=== PATIENT | female | born 1935 | race Caucasian/White ===

== ENCOUNTER 2020-06-30 12:45 | Inpatient (IN) | payer MEDICARE, MEDICAID ==
--- NOTE | 2020-06-30 13:07 | EDM.PDOC ---
ED HPI GENERAL MEDICAL PROBLEM - General Stated Complaint: TACHYCARDIA;A FIB Time Seen by Provider: 06/30/20 12:54 Source of Information: Reports: Patient, EMS, Provider (Cindy Doherty called me) History Limitations: Reports: No Limitations - History of Present Illness INITIAL COMMENTS - FREE TEXT/NARRATIVE: Patient presents with racing heart, dyspnea, weakness and fatigue. She went in to the [facility] and saw Cindy Doherty. EKG and CXR were done showing A Fib with RVR. CXR showing small bilat pleural effusions. Cindy sent her here for further treatment and likely admission. A week ago patient saw Frederick Duggan with heart rate in mid 90's and was started on metoprolol. - Related Data Allergies Allergy/AdvReac Type Severity Reaction Status Date / Time No Known Drug Allergies Allergy Cannot Verified 06/30/20 13:09 Remember Home Meds: Home Meds Acetaminophen [Pain Relief] 650 mg PO Q4H PRN 06/30/20 [History] Apixaban [Eliquis] 2.5 mg PO BID 06/30/20 [History] Aspirin [Aspirin EC] 325 mg PO DAILY 06/30/20 [History] Cinacalcet [Sensipar] 60 mg PO BID 06/30/20 [History] Levothyroxine 75 mcg PO ACBREAKFAST 06/30/20 [History] Magnesium Oxide 500 mg PO DAILY 06/30/20 [History] Metoprolol Succinate [Toprol XL 50mg] 50 mg PO DAILY 06/30/20 [History] Phosphorus #1 [Phospha 250 Neutral Tablet] 250 mg PO DAILY 06/30/20 [History] atorvaSTATin [Lipitor] 80 mg PO BEDTIME 06/30/20 [History] ED ROS GENERAL - Review of Systems Review Of Systems: See Below Constitutional: Reports: Weakness, Fatigue. Denies: Fever, Chills HEENT: Denies: Ear Pain, Throat Pain, Vision Change Respiratory: Reports: Shortness of Breath. Denies: Cough Cardiovascular: Denies: Chest Pain, Lightheadedness, Syncope Endocrine: Reports: Fatigue GI/Abdominal: Denies: Abdominal Pain, Constipation, Diarrhea, Decreased Appetite, Nausea, Vomiting : Denies: Dysuria Musculoskeletal: Denies: Neck Pain, Shoulder Pain, Arm Pain, Back Pain Skin: Denies: Cyanosis, Jaundice, Mottled, Pallor, Diaphoresis Neurological: Denies: Confusion, Dizziness, Headache, Seizure, Syncope, Trouble Speaking, Difficulty Walking Psychiatric: Denies: Agitation ED EXAM, GENERAL - Physical Exam Exam: See Below Exam Limited By: No Limitations General Appearance: Alert, WD/WN, No Apparent Distress Ears: Normal External Exam, Hearing Grossly Normal Nose: Normal Inspection, No Blood Throat/Mouth: Normal Inspection, Normal Lips, Normal Voice, No Airway Compromise Head: Atraumatic, Normocephalic Neck: Normal Inspection, Supple, Non-Tender, Full Range of Motion Respiratory/Chest: No Respiratory Distress, Lungs Clear, Normal Breath Sounds, No Accessory Muscle Use Cardiovascular: Normal Peripheral Pulses, No Edema, No Gallop, Tachycardia, Irregularly Irregular GI/Abdominal: Normal Bowel Sounds, Soft, Non-Tender, No Organomegaly, No Distention Back Exam: Normal Inspection Extremities: Normal Inspection, Normal Range of Motion, Non-Tender, No Pedal Edema Neurological: Alert, Oriented, Normal Cognition, No Motor/Sensory Deficits Psychiatric: Normal Affect, Normal Mood Skin Exam: Warm, Dry, Intact, Normal Color, No Rash #1 Interpretation EKG Date: 06/30/20 Rhythm: A-Fib Rate (Beats/Min): 126 ST-T: Normal Course - Vital Signs Last Recorded V/S: Last Vital Signs Temp 97.9 F 06/30/20 12:54 Pulse 96 06/30/20 14:21 Resp 18 06/30/20 14:21 BP 146/92 H 06/30/20 14:21 Pulse Ox 94 L 06/30/20 14:21 - Orders/Labs/Meds Orders: Active Orders 24 hr Category Date Time Status Patient Status [ADT] Routine ADT 06/30/20 14:40 Ordered EKG Documentation Completion [RC] ASDIRECTED Care 06/30/20 13:11 Ordered Peripheral IV Care [RC] . DIRECTED Care 06/30/20 13:26 Active CORONAVIRUS COVID-19 RAPID [MOLEC] Stat Lab 06/30/20 14:39 Ordered Sodium Chloride 0.9% [Normal Saline] 1,000 ml Med 06/30/20 13:19 Ordered IV .BOLUS Sodium Chloride 0.9% [Saline Flush] Med 06/30/20 13:26 Active 10 ml FLUSH Q8HR PRN Peripheral IV Insertion Adult [OM.PC] Routine Oth 06/30/20 13:26 Ordered EKG 12 Lead [EK] Stat Ther 06/30/20 13:10 Ordered Medication Orders Sodium Chloride (Normal Saline) 1,000 mls @ 125 mls/hr IV .BOLUS ONE Stop: 06/30/20 21:18 Last Admin: 06/30/20 13:22 Dose: 125 mls/hr Documented by: GARRISON Sodium Chloride (Sodium Chloride 0.9% 10 Ml Syringe) 10 ml FLUSH Q8HR PRN PRN Reason: keep vein open Labs: Laboratory Tests 06/30/20 06/30/20 06/30/20 Range/Units 13:05 13:05 13:05 WBC 10.78 H (5.00-10.00) 10^3/uL RBC 4.59 (3.80-5.50) 10^6/uL Hgb 10.1 L (12.0-16.0) g/dL Hct 34.0 L (37.0-47.0) % MCV 74.1 L (82.0-92.0) fL MCH 22.0 L (27.0-31.0) pg MCHC 29.7 L (32.0-36.0) g/dL RDW 15.4 H (11.5-14.5) % Plt Count 349 (150-400) 10^3/uL MPV 10.6 H (7.4-10.4) fL Immature Gran % (Auto) 0.2 (0.0-5.0) % Neut % (Auto) 78.4 H (50.0-70.0) % Lymph % (Auto) 12.6 L (20.0-40.0) % Hanson % (Auto) 8.3 H (2.0-8.0) % Eos % (Auto) 0.2 L (1.0-3.0) % Baso % (Auto) 0.3 (0.0-1.0) % Neut # (Auto) 8.46 H (2.50-7.00) 10^3/uL Lymph # (Auto) 1.36 (1.00-4.00) 10^3/uL Hanson # (Auto) 0.89 H (0.10-0.80) 10^3/uL Eos # (Auto) 0.02 L (0.10-0.30) 10^3/uL Baso # (Auto) 0.03 (0.00-0.10) 10^3/uL Immature Gran # (Auto) 0.02 (0.00-0.50) 10^3/uL Sodium 144 (136-145) mmol/L Potassium 4.1 (3.5-5.1) mmol/L Chloride 108 H (98-107) mmol/L Carbon Dioxide 24.8 (21.0-32.0) mmol/L Anion Gap 15.3 H (5-15) mmol/L BUN 27 H (7-18) mg/dL Creatinine 1.25 H (0.51-1.17) mg/dL Est Cr Clr Drug Dosing 28.41 mL/min Estimated GFR (MDRD) 41 mL/min Glucose 95 (70-140) mg/dL Calcium 9.1 (8.7-10.3) mg/dL Total Bilirubin 0.7 (0.2-1.0) mg/dL AST 36 (15-37) U/L ALT 56 (14-63) U/L Alkaline Phosphatase 94 (46-116) U/L Troponin I < 0.017 (0.000-0.056) ng/mL B-Natriuretic Peptide 880 H (0-100) pg/mL Total Protein 7.0 (6.4-8.2) g/dL Albumin 3.50 (3.40-5.00) g/dL Meds: Medications Generic Name Dose Route Start Last Admin Trade Name Freq PRN Reason Stop Dose Admin Sodium Chloride 1,000 mls @ 125 mls/hr 06/30/20 13:19 06/30/20 13:22 Normal Saline IV 06/30/20 21:18 125 mls/hr .BOLUS ONE Administration Sodium Chloride 10 ml 06/30/20 13:26 Sodium Chloride 0.9% 10 Ml Syringe FLUSH Q8HR PRN keep vein open Discontinued Medications Generic Name Dose Route Start Last Admin Trade Name Freq PRN Reason Stop Dose Admin Diltiazem HCl 15 mg 06/30/20 13:12 06/30/20 13:22 Diltiazem 25 Mg/5 Ml Sdv 0.25 mg/kg (15 mg) 06/30/20 13:13 15 mg IVPUSH Administration NOW ONE Sodium Chloride Confirm 06/30/20 13:20 06/30/20 13:23 Normal Saline Administered 06/30/20 13:21 Not Given Dose 1,000 mls @ as directed .ROUTE .STK-MED ONE Metoprolol Succinate 25 mg 06/30/20 14:37 Metoprolol Succinate 25 Mg Tab.Er PO 06/30/20 14:38 ONETIME ONE - Re-Assessments/Exams Free Text/Narrative Re-Assessment/Exam: 06/30/20 14:37 HR came down nicely with the diltiazem. BNP is 880 and baseline unavailable. I discussed findings and recommendations with patient, her brother and niece. Discussed case with Dr. Cloud who accepted for observation. Will stop the fluids and give dose of metoprolol succinate 25 mg now. Patient stable at discharge from ER. Departure - Departure Time of Disposition: 14:45 Disposition: Refer to Observation Condition: Good Clinical Impression: Atrial fibrillation with RVR, Pleural effusion CHF (congestive heart failure) Qualifiers: Heart failure type: unspecified Heart failure chronicity: unspecified Qualified Code(s): I50.9 - Heart failure, unspecified Sepsis Event Note (ED) - Focused Exam Vital Signs: Vital Signs Temp Pulse Resp BP Pulse Ox 06/30/20 14:21 96 18 146/92 H 94 L 06/30/20 14:00 92 28 H 155/79 H 95 06/30/20 13:45 71 32 H 133/74 94 L 06/30/20 13:30 85 29 H 122/79 90 L 06/30/20 13:15 130 H 36 H 151/92 H 95 06/30/20 13:00 131 H 42 H 156/92 H 94 L 06/30/20 12:54 97.9 F 138 H 38 H 140/95 H 93 L - My Orders Last 24 Hours: My Active Orders 06/30/20 13:10 EKG 12 Lead [EK] Stat 06/30/20 13:11 EKG Documentation Completion [RC] ASDIRECTED 06/30/20 13:19 Sodium Chloride 0.9% [Normal Saline] 1,000 ml IV .BOLUS 06/30/20 13:26 Peripheral IV Care [RC] . DIRECTED Sodium Chloride 0.9% [Saline Flush] 10 ml FLUSH Q8HR PRN Peripheral IV Insertion Adult [OM.PC] Routine 06/30/20 14:39 CORONAVIRUS COVID-19 RAPID [MOLEC] Stat 06/30/20 14:40 Patient Status [ADT] Routine - Assessment/Plan Last 24 Hours: My Active Orders 06/30/20 13:10 EKG 12 Lead [EK] Stat 06/30/20 13:11 EKG Documentation Completion [RC] ASDIRECTED 06/30/20 13:19 Sodium Chloride 0.9% [Normal Saline] 1,000 ml IV .BOLUS 06/30/20 13:26 Peripheral IV Care [RC] . DIRECTED Sodium Chloride 0.9% [Saline Flush] 10 ml FLUSH Q8HR PRN Peripheral IV Insertion Adult [OM.PC] Routine 06/30/20 14:39 CORONAVIRUS COVID-19 RAPID [MOLEC] Stat 06/30/20 14:40 Patient Status [ADT] Routine
[2020-06-30] MEDS ORDERED: Diltiazem 25 MG/5 ML SDV IVPUSH ONE (13:12)
[2020-06-30] MEDS ORDERED: Sodium Chloride 0.9% 1,000 ML IV ONE (13:19)
[2020-06-30] MEDS ORDERED: Sodium Chloride 0.9% 1,000 ML ONE (13:20)
[2020-06-30] MEDS ORDERED: Sodium Chloride 0.9% 10 ML Syringe FLUSH PRN (13:26)
[2020-06-30 13:34] LABS: ANION GAP 15.3 mmol/L (5-15); CHLORIDE,CL 108 mmol/L (98-107); SODIUM,NA 144 mmol/L (136-145)
[2020-06-30] MEDS ORDERED: Metoprolol Succinate 25 MG Tab.ER PO ONE ×2 (14:37→17:55)
[2020-06-30] MEDS ORDERED: Acetaminophen 325 MG Tab PO PRN (17:45)
[2020-06-30] MEDS ORDERED: Digoxin 125 MCG Tab PO ONE (18:18)
--- NOTE | 2020-06-30 20:11 | HP ---
PATIENT PROFILE: The patient is an 84-year-old patient from [place], [place]. HISTORY OF PRESENT ILLNESS: This 84-year-old patient was seen at the [facility] today by nurse practitioner, Cindy Doherty. She was noted to have a racing heart, dyspnea, and weakness, and fatigue. EKG and chest x-ray were performed there showing atrial fibrillation with rapid ventricular response. Chest x-ray showed small bilateral pleural effusions. She was sent to the emergency room for further treatment. A week ago, the patient was seen by CATERINA Walter, with heart rate in the mid-90s and was started on the metoprolol. PAST MEDICAL HISTORY: Includes cerebellar stroke many years ago. She has been on chronic long-term anticoagulation therapy with Eliquis 2.5 mg twice a day. She has a history of hypothyroidism, atrial flutter, hyperparathyroidism. The patient's past history is also positive for hypertension, osteoporosis, and thyroid disease. MEDICATIONS: Her regular medications are as follows: 1. K-Phos mono-sodium 250 mg one time a day. 2. Levothyroxine 75 mcg daily. 3. Metoprolol succinate 50 mg SR one tablet daily. 4. Eliquis 2.5 mg twice a day. 5. Acetaminophen 2 tablets 325 mg every 4 hours as necessary. 6. Aspirin 325 mg daily. 7. Atorvastatin 80 mg daily. 8. Magnesium oxide 500 mg daily. 9. Sensipar (cinacalcet) 60 mg daily, 2 times a day. SOCIAL/PERSONAL HISTORY: The patient never smoked. Never used tobacco. No alcohol usage. No drug usage. FAMILY HISTORY: Nil significant. IMMUNIZATIONS: The patient has never had any pneumococcal vaccine. In November 2019, she had one dose of influenza vaccine. She has never had a zoster vaccine or a COVID vaccine. Her COVID test was negative. REVIEW OF SYSTEMS: CONSTITUTIONAL: Complains of weakness, fatigue. Denies fever and chills. HEAD, ENT: No complaints. RESPIRATORY: Complains of shortness of breath, but denies coughing or hemoptysis. CARDIOVASCULAR: Denies any chest pain, lightheadedness, syncope. ENDOCRINE: Reports fatigue. GI/ABDOMEN: Denies abdominal pain, constipation, diarrhea, decreased appetite, nausea, vomiting. : Denies dysuria or hematuria. MUSCULOSKELETAL SYSTEM: Denies neck pain, shoulder pain, arm pain, back pain. SKIN: Denies jaundice, pallor, dryness, etc. NEUROLOGICAL: Denies confusion, headache, seizures, syncope, trouble speaking, walking, etc. PSYCHIATRIC: Denies agitation. PHYSICAL EXAMINATION: GENERAL: Reveals an elderly patient in [id number] distress. VITAL SIGNS: Heart rate is about 110. Blood pressure is 140/90. Pulse oxygenation 94%. Respirations are 18. Temperature is 97.9. HEAD: Negative. EYES: Arcus senilis. NECK: Supple. Lymph nodes not enlarged. Carotid pulses are full and equal. No bruits are heard. Trachea midline. HEART: Rapid rhythm noted. Slight irregularity noted. Grade 1/6 systolic murmur in the apex. LUNGS: Clinically clear except to the left base. ABDOMEN: Soft. No masses. No tenderness. No organomegaly. Femoral pulses are full. No tenderness. : Negative. MUSCULOSKELETAL: Negative. BACK: Normal to inspection. EXTREMITIES: Normal. Full range of motion. No tenderness. No pedal edema. NEUROLOGICAL: The patient is alert, oriented to space, time, and person. PSYCHIATRIC: Normal mood and normal affect. SKIN: Normal. DIAGNOSTIC: EKG shows a rate of 126. ST-T segments are normal. Atrial fibrillation. LABORATORY DATA: Hemoglobin was 10.1. Previously it was 13.5 seven months ago. Indices are microcytic indices. The patient's anion gap is 15.3, normal 15. BUN is 27, normal 18. Creatinine is 1.25, normal 1.17. Creatinine clearance is 28.41. MCV is 74, normal 92. MCH 22, normal 31. MCHC 29.7, normal 32. RDW 15, normal 14.5. B-type natriuretic peptide is 880, normal 100. IMPRESSION/PLAN: Final diagnoses of acute atrial fibrillation with rapid ventricular response; question pleural effusion; question heart failure; reduced ejection fraction; history of anemia.2. Hyperparathyroidism, continue Sensipar, monitor Ca levels.3. Mild kidney dysfunction, Will monitor, give fluids carefully.4. Elevated BNP level, ? Early CHF, will monitor carefully. I/O, etc. 5. Hypothyroidism, continue Thyroxine. Plan is to admit to the hospital for further treatment including p.o. metoprolol succinate and IV diltiazem as necessary. We will continuously monitor her. We will give her low dose of fluids. We will monitor her lungs and make sure she is not in any failure. We will continue her medications for, Eliquis, thyroxine, atorvastatin, magnesium, Sensipar, and aspirin. Also acetaminophen as necessary. We will also continue Phospha Neutral. We will monitor her kidney function tests as well. Her beta blockers may have to be increased to control her faster heart rate. Troponin levels are negative. /[id number]/MODL MTDD
[2020-06-30] MEDS: atorvaSTATin 40 MG Tab PO SCH (20:15)
[2020-06-30] MEDS: Apixaban 5 MG Tab PO SCH (20:15)
[2020-06-30] MEDS ORDERED: CINACALCET 60 MG PO SCH (21:00)
[2020-06-30] MEDS ORDERED: Metoprolol Tartrate 25 MG Tab PO ONE (21:26)
[2020-07-01] MEDS ORDERED: Metoprolol Succinate 25 MG Tab.ER PO ONE ×2 (00:16→05:50)
[2020-07-01] MEDS ORDERED: Metoprolol Succinate 25 MG Tab.ER ONE (00:23)
[2020-07-01] MEDS ORDERED: Furosemide 40 MG/4 ML VIAL IVPUSH ONE ×2 (05:18→14:00)
[2020-07-01] MEDS ORDERED: Diltiazem 25 MG/5 ML SDV IVPUSH ONE (05:19)
[2020-07-01] MEDS ORDERED: Digoxin 500 MCG/2 ML Amp IVPUSH ONE (05:45)
[2020-07-01] MEDS: Levothyroxine 75 MCG Tab PO SCH ×2 (06:01→07:09)
[2020-07-01 07:56] LABS: ANION GAP 15.7 mmol/L (5-15)
[2020-07-01] MEDS: Apixaban 5 MG Tab PO SCH ×2 (08:56→21:16)
[2020-07-01] MEDS: Phosphorus #1 250 MG Tab PO SCH (08:57)
[2020-07-01] MEDS: Aspirin 325 MG Tab.EC PO SCH (08:57)
[2020-07-01] MEDS: Magnesium Oxide 500 MG Tab PO SCH (08:58)
[2020-07-01] MEDS ORDERED: Metoprolol Succinate 50 MG Tab.ER PO SCH (09:00)
[2020-07-01] MEDS ORDERED: Metoprolol Succinate 50 MG Tab.ER PO ONE ×2 (10:40→21:00)
--- NOTE | 2020-07-01 11:06 | PCM.PN ---
- General Info Date of Service: 07/01/20 Functional Status: Reports: Pain Controlled, Tolerating Diet, Urinating. Denies: Ambulating, New Symptoms - Review of Systems General: Denies: Fever, Weakness, Fatigue, Malaise, Chills HEENT: Reports: No Symptoms Pulmonary: Reports: Shortness of Breath. Denies: Cough, Sputum, Hemoptysis, Wh eezing Cardiovascular: Denies: Chest Pain, Palpitations, Orthopnea, PND, Edema Gastrointestinal: Denies: Constipation Genitourinary: Denies: Dysuria, Frequency Musculoskeletal: Reports: No Symptoms Skin: Reports: Bruising Neurological: Denies: Confusion, Dizziness Psychiatric: Reports: No Symptoms - Patient Data Vitals - Most Recent: Last Vital Signs Temp 97.1 F 07/01/20 05:00 Pulse 101 H 07/01/20 08:57 Resp 30 H 07/01/20 06:25 BP 155/75 H 07/01/20 08:57 Pulse Ox 92 L 07/01/20 06:25 Weight - Most Recent: 133 lb I&O - Last 24 Hours: Intake & Output 06/30/20 07/01/20 07/01/20 22:59 06:59 14:59 Intake Total 300 200 Balance 300 200 Lab Results Last 24 Hours: Laboratory Results - last 24 hr 06/30/20 06/30/20 06/30/20 Range/Units 13:05 13:05 13:05 WBC 10.78 H (5.00-10.00) 10^3/uL RBC 4.59 (3.80-5.50) 10^6/uL Hgb 10.1 L (12.0-16.0) g/dL Hct 34.0 L (37.0-47.0) % MCV 74.1 L (82.0-92.0) fL MCH 22.0 L (27.0-31.0) pg MCHC 29.7 L (32.0-36.0) g/dL RDW 15.4 H (11.5-14.5) % Plt Count 349 (150-400) 10^3/uL MPV 10.6 H (7.4-10.4) fL Immature Gran % (Auto) 0.2 (0.0-5.0) % Neut % (Auto) 78.4 H (50.0-70.0) % Lymph % (Auto) 12.6 L (20.0-40.0) % Keith % (Auto) 8.3 H (2.0-8.0) % Eos % (Auto) 0.2 L (1.0-3.0) % Baso % (Auto) 0.3 (0.0-1.0) % Neut # (Auto) 8.46 H (2.50-7.00) 10^3/uL Lymph # (Auto) 1.36 (1.00-4.00) 10^3/uL Keith # (Auto) 0.89 H (0.10-0.80) 10^3/uL Eos # (Auto) 0.02 L (0.10-0.30) 10^3/uL Baso # (Auto) 0.03 (0.00-0.10) 10^3/uL Immature Gran # (Auto) 0.02 (0.00-0.50) 10^3/uL Sodium 144 (136-145) mmol/L Potassium 4.1 (3.5-5.1) mmol/L Chloride 108 H (98-107) mmol/L Carbon Dioxide 24.8 (21.0-32.0) mmol/L Anion Gap 15.3 H (5-15) mmol/L BUN 27 H (7-18) mg/dL Creatinine 1.25 H (0.51-1.17) mg/dL Est Cr Clr Drug Dosing 28.41 mL/min Estimated GFR (MDRD) 41 mL/min Glucose 95 (70-140) mg/dL Calcium 9.1 (8.7-10.3) mg/dL TIBC Total Bilirubin 0.7 (0.2-1.0) mg/dL AST 36 (15-37) U/L ALT 56 (14-63) U/L Alkaline Phosphatase 94 (46-116) U/L Troponin I < 0.017 (0.000-0.056) ng/mL B-Natriuretic Peptide 880 H (0-100) pg/mL Total Protein 7.0 (6.4-8.2) g/dL Albumin 3.50 (3.40-5.00) g/dL SARS CoV-2 RNA Rapid LISA (NEGATIVE) 06/30/20 07/01/20 07/01/20 Range/Units 14:40 07:25 07:25 WBC 9.85 (5.00-10.00) 10^3/uL RBC 4.62 (3.80-5.50) 10^6/uL Hgb 10.2 L (12.0-16.0) g/dL Hct 35.0 L (37.0-47.0) % MCV 75.8 L (82.0-92.0) fL MCH 22.1 L (27.0-31.0) pg MCHC 29.1 L (32.0-36.0) g/dL RDW 15.5 H (11.5-14.5) % Plt Count 326 (150-400) 10^3/uL MPV 10.9 H (7.4-10.4) fL Immature Gran % (Auto) 0.2 (0.0-5.0) % Neut % (Auto) 80.2 H (50.0-70.0) % Lymph % (Auto) 9.6 L (20.0-40.0) % Keith % (Auto) 8.0 (2.0-8.0) % Eos % (Auto) 1.6 (1.0-3.0) % Baso % (Auto) 0.4 (0.0-1.0) % Neut # (Auto) 7.89 H (2.50-7.00) 10^3/uL Lymph # (Auto) 0.95 L (1.00-4.00) 10^3/uL Keith # (Auto) 0.79 (0.10-0.80) 10^3/uL Eos # (Auto) 0.16 (0.10-0.30) 10^3/uL Baso # (Auto) 0.04 (0.00-0.10) 10^3/uL Immature Gran # (Auto) 0.02 (0.00-0.50) 10^3/uL Sodium 146 H (136-145) mmol/L Potassium 3.8 (3.5-5.1) mmol/L Chloride 108 H (98-107) mmol/L Carbon Dioxide 26.1 (21.0-32.0) mmol/L Anion Gap 15.7 H (5-15) mmol/L BUN 25 H (7-18) mg/dL Creatinine 1.36 H (0.51-1.17) mg/dL Est Cr Clr Drug Dosing 26.12 mL/min Estimated GFR (MDRD) 37 mL/min Glucose 102 (70-140) mg/dL Calcium 8.9 (8.7-10.3) mg/dL TIBC Cancelled Total Bilirubin 0.6 (0.2-1.0) mg/dL AST 32 (15-37) U/L ALT 51 (14-63) U/L Alkaline Phosphatase 86 (46-116) U/L Troponin I (0.000-0.056) ng/mL B-Natriuretic Peptide (0-100) pg/mL Total Protein 6.8 (6.4-8.2) g/dL Albumin 3.25 L (3.40-5.00) g/dL SARS CoV-2 RNA Rapid LISA Negative (NEGATIVE) Med Orders - Current: Current Medications Acetaminophen (Acetaminophen 325 Mg Tab) 650 mg PO Q4H PRN PRN Reason: Pain Apixaban (Apixaban 5 Mg Tab) 2.5 mg PO BID [facility] Last Admin: 07/01/20 08:56 Dose: 2.5 mg Documented by: Aspirin (Aspirin 325 Mg Tab.Ec) 325 mg PO DAILY [facility] Last Admin: 07/01/20 08:57 Dose: 325 mg Documented by: Atorvastatin Calcium (Atorvastatin 40 Mg Tab) 80 mg PO BEDTIME [facility] Last Admin: 06/30/20 20:15 Dose: 80 mg Documented by: Levothyroxine Sodium (Levothyroxine 75 Mcg Tab) 75 mcg PO ACBREAKFAST [facility] Last Admin: 07/01/20 07:09 Dose: Not Given Documented by: Magnesium Oxide (Magnesium Oxide 500 Mg Tab) 500 mg PO DAILY [facility] Last Admin: 07/01/20 08:58 Dose: 500 mg Documented by: Metoprolol Succinate (Metoprolol Succinate 50 Mg Tab.Er) 50 mg PO DAILY [facility] Last Admin: 07/01/20 08:57 Dose: 50 mg Documented by: Sodium Chloride (Sodium Chloride 0.9% 10 Ml Syringe) 10 ml FLUSH Q8HR PRN PRN Reason: keep vein open Sodium Phosphate (Phosphorus #1 250 Mg Tab) 250 mg PO DAILY [facility] Last Admin: 07/01/20 08:57 Dose: 250 mg Documented by: Discontinued Medications Digoxin (Digoxin 125 Mcg Tab) 250 mcg PO ONETIME ONE Stop: 06/30/20 18:19 Last Admin: 06/30/20 18:35 Dose: 250 mcg Documented by: Digoxin (Digoxin 500 Mcg/2 Ml Amp) 250 mcg IVPUSH ONETIME ONE Stop: 07/01/20 05:46 Last Admin: 07/01/20 06:03 Dose: 250 mcg Documented by: Diltiazem HCl (Diltiazem 25 Mg/5 Ml Sdv) 15 mg 0.25 mg/kg (15 mg) IVPUSH NOW ONE Stop: 06/30/20 13:13 Last Admin: 06/30/20 13:22 Dose: 15 mg Documented by: Diltiazem HCl (Diltiazem 25 Mg/5 Ml Sdv) 15 mg IVPUSH ONETIME ONE Stop: 07/01/20 05:20 Last Admin: 07/01/20 05:38 Dose: 15 mg Documented by: Furosemide (Furosemide 40 Mg/4 Ml Vial) 20 mg IVPUSH NOW ONE Stop: 07/01/20 05:19 Last Admin: 07/01/20 05:33 Dose: 20 mg Documented by: Sodium Chloride (Normal Saline) 1,000 mls @ 125 mls/hr IV .BOLUS ONE Stop: 06/30/20 21:18 Last Admin: 06/30/20 13:22 Dose: 125 mls/hr Documented by: Sodium Chloride (Normal Saline) Confirm Administered Dose 1,000 mls @ as directed .ROUTE .STK-MED ONE Stop: 06/30/20 13:21 Last Admin: 06/30/20 13:23 Dose: Not Given Documented by: Metoprolol Succinate (Metoprolol Succinate 25 Mg Tab.Er) 25 mg PO ONETIME ONE Stop: 06/30/20 14:38 Last Admin: 06/30/20 14:55 Dose: 25 mg Documented by: Metoprolol Succinate (Metoprolol Succinate 25 Mg Tab.Er) 25 mg PO ONETIME ONE Stop: 06/30/20 17:56 Last Admin: 06/30/20 18:35 Dose: 25 mg Documented by: Metoprolol Succinate (Metoprolol Succinate 25 Mg Tab.Er) 12.5 mg PO ONETIME ONE Stop: 07/01/20 00:17 Last Admin: 07/01/20 00:24 Dose: 12.5 mg Documented by: Metoprolol Succinate (Metoprolol Succinate 25 Mg Tab.Er) Confirm Administered Dose 25 mg .ROUTE .STK-MED ONE Stop: 07/01/20 00:24 Last Admin: 07/01/20 01:21 Dose: Not Given Documented by: Metoprolol Succinate (Metoprolol Succinate 25 Mg Tab.Er) 25 mg PO ONETIME ONE Stop: 07/01/20 05:51 Last Admin: 07/01/20 06:01 Dose: 25 mg Documented by: Metoprolol Tartrate (Metoprolol Tartrate 25 Mg Tab) 12.5 mg PO ONETIME ONE Stop: 06/30/20 21:27 Last Admin: 06/30/20 21:50 Dose: 12.5 mg Documented by: Cinacalcet [Sensipar (] 60 Mg Tablet) 60 mg PO BID [facility] Last Admin: 06/30/20 23:29 Dose: Not Given Documented by: - Exam Quality Assessment: Supplemental Oxygen, DVT Prophylaxis General: Alert, Oriented, Cooperative, No Acute Distress Neck: No JVD. No: Lymphadenopathy, JVD Lungs: Crackles (slilght crackles left lung base) Cardiovascular: Irregular Rhythm. No: Bradycardia, Tachycardia GI/Abdominal Exam: Normal Bowel Sounds, Soft, No Distention (Female) Exam: Deferred Back Exam: No: CVA Tenderness (L), CVA Tenderness (R) Extremities: No Pedal Edema. No: Slow Capillary Refill Peripheral Pulses: 2+: Radial (L), Radial (R) Skin: Warm, Dry, Intact Neurological: No New Focal Deficit Psy/Mental Status: Alert, Normal Affect, Normal Mood - Patient Data Lab Results Last 24 hrs: Laboratory Results - last 24 hr 06/30/20 06/30/20 06/30/20 Range/Units 13:05 13:05 13:05 WBC 10.78 H (5.00-10.00) 10^3/uL RBC 4.59 (3.80-5.50) 10^6/uL Hgb 10.1 L (12.0-16.0) g/dL Hct 34.0 L (37.0-47.0) % MCV 74.1 L (82.0-92.0) fL MCH 22.0 L (27.0-31.0) pg MCHC 29.7 L (32.0-36.0) g/dL RDW 15.4 H (11.5-14.5) % Plt Count 349 (150-400) 10^3/uL MPV 10.6 H (7.4-10.4) fL Immature Gran % (Auto) 0.2 (0.0-5.0) % Neut % (Auto) 78.4 H (50.0-70.0) % Lymph % (Auto) 12.6 L (20.0-40.0) % Keith % (Auto) 8.3 H (2.0-8.0) % Eos % (Auto) 0.2 L (1.0-3.0) % Baso % (Auto) 0.3 (0.0-1.0) % Neut # (Auto) 8.46 H (2.50-7.00) 10^3/uL Lymph # (Auto) 1.36 (1.00-4.00) 10^3/uL Keith # (Auto) 0.89 H (0.10-0.80) 10^3/uL Eos # (Auto) 0.02 L (0.10-0.30) 10^3/uL Baso # (Auto) 0.03 (0.00-0.10) 10^3/uL Immature Gran # (Auto) 0.02 (0.00-0.50) 10^3/uL Sodium 144 (136-145) mmol/L Potassium 4.1 (3.5-5.1) mmol/L Chloride 108 H (98-107) mmol/L Carbon Dioxide 24.8 (21.0-32.0) mmol/L Anion Gap 15.3 H (5-15) mmol/L BUN 27 H (7-18) mg/dL Creatinine 1.25 H (0.51-1.17) mg/dL Est Cr Clr Drug Dosing 28.41 mL/min Estimated GFR (MDRD) 41 mL/min Glucose 95 (70-140) mg/dL Calcium 9.1 (8.7-10.3) mg/dL TIBC Total Bilirubin 0.7 (0.2-1.0) mg/dL AST 36 (15-37) U/L ALT 56 (14-63) U/L Alkaline Phosphatase 94 (46-116) U/L Troponin I < 0.017 (0.000-0.056) ng/mL B-Natriuretic Peptide 880 H (0-100) pg/mL Total Protein 7.0 (6.4-8.2) g/dL Albumin 3.50 (3.40-5.00) g/dL SARS CoV-2 RNA Rapid LISA (NEGATIVE) 06/30/20 07/01/20 07/01/20 Range/Units 14:40 07:25 07:25 WBC 9.85 (5.00-10.00) 10^3/uL RBC 4.62 (3.80-5.50) 10^6/uL Hgb 10.2 L (12.0-16.0) g/dL Hct 35.0 L (37.0-47.0) % MCV 75.8 L (82.0-92.0) fL MCH 22.1 L (27.0-31.0) pg MCHC 29.1 L (32.0-36.0) g/dL RDW 15.5 H (11.5-14.5) % Plt Count 326 (150-400) 10^3/uL MPV 10.9 H (7.4-10.4) fL Immature Gran % (Auto) 0.2 (0.0-5.0) % Neut % (Auto) 80.2 H (50.0-70.0) % Lymph % (Auto) 9.6 L (20.0-40.0) % Keith % (Auto) 8.0 (2.0-8.0) % Eos % (Auto) 1.6 (1.0-3.0) % Baso % (Auto) 0.4 (0.0-1.0) % Neut # (Auto) 7.89 H (2.50-7.00) 10^3/uL Lymph # (Auto) 0.95 L (1.00-4.00) 10^3/uL Keith # (Auto) 0.79 (0.10-0.80) 10^3/uL Eos # (Auto) 0.16 (0.10-0.30) 10^3/uL Baso # (Auto) 0.04 (0.00-0.10) 10^3/uL Immature Gran # (Auto) 0.02 (0.00-0.50) 10^3/uL Sodium 146 H (136-145) mmol/L Potassium 3.8 (3.5-5.1) mmol/L Chloride 108 H (98-107) mmol/L Carbon Dioxide 26.1 (21.0-32.0) mmol/L Anion Gap 15.7 H (5-15) mmol/L BUN 25 H (7-18) mg/dL Creatinine 1.36 H (0.51-1.17) mg/dL Est Cr Clr Drug Dosing 26.12 mL/min Estimated GFR (MDRD) 37 mL/min Glucose 102 (70-140) mg/dL Calcium 8.9 (8.7-10.3) mg/dL TIBC Cancelled Total Bilirubin 0.6 (0.2-1.0) mg/dL AST 32 (15-37) U/L ALT 51 (14-63) U/L Alkaline Phosphatase 86 (46-116) U/L Troponin I (0.000-0.056) ng/mL B-Natriuretic Peptide (0-100) pg/mL Total Protein 6.8 (6.4-8.2) g/dL Albumin 3.25 L (3.40-5.00) g/dL SARS CoV-2 RNA Rapid LISA Negative (NEGATIVE) Result Diagrams: 07/01/20 07:25 07/01/20 07:25 Sepsis Event Note - Evaluation Sepsis Screening Result: No Definite Risk - Focused Exam Vital Signs: Vital Signs Temp Pulse Pulse Resp BP BP Pulse Ox 07/01/20 08:57 101 H 155/75 H 07/01/20 06:25 64 30 H 159/79 H 92 L 07/01/20 06:03 65 07/01/20 06:01 65 152/104 H 07/01/20 05:00 97.1 F 125 H 34 H 152/104 H 96 07/01/20 03:00 96.6 F L 125 H 28 H 155/100 H 85 L 07/01/20 00:24 104 H 142/97 H 06/30/20 23:00 98.6 F 120 H 22 H 142/97 H 96 - Problem List Review Problem List Initiated/Reviewed/Updated: Yes - Plan Plan:: History summary Ms Horton a very pleasant 84-year-old woman that was admitted into OBS status due to atrial fibrillation with RVR. Patient was evaluated by Cindy Doherty NP outlying [facility] yesterday due to shortness of breath weakness and f atigue and tachycardia and she was subsequently sent to the ED for further evaluation. This author had seen patient about a week prior [facility] when she came in due to hypertension I have placed her on metoprolol tartrate. Patient had mainly Dr. With Dr. Xochitl Shrestha and Dr. Rangel in [facility]. Does have hyperparathyroidism ED course 06/30/20 14:37 BNP 880 Trop Neg CXR; small bilat pleural effusions EKG, atrial fibrillation, heart rate 120s HR reduced with the diltiazem. Dose of metoprolol succinate 25 mg x1. Hospital course 06/30/2020; @ 2130 on call pharmacy technician provider ordered one-time dose of Metoprolol for HR greater than 100. Provider ordered 12.5mg of Metoprolol Tartrate to be given now and if at midnight the HR continues above 100, to give 12.5mg Metoprolol Succinate. 07/01/2020 @ 0500, patient noted to on side of bed by nursing with SOB, Pt denied chest pain. VS: T 97.1, HR 125, RR 34, SpO2 96% on 2L, BP 152/104. At 0515 Provider, Dr. Cloud, notified of patient status as well as gradual increase in HR of 120s with brief 130s. Provider ordered a 1x Lasix of 20mg IVP, cardizem 15mg IVP once. At 0530, Dr. Cloud called back and also ordered Lanoxin 0.25mg IVP once and Metoprolol Succinate 25mg PO once. At 0630 pt reported that she was breath ing better and vital signs have improved. Primary hospital problem --Atrial fibrillation, longstanding/persistent and likely permanent given age therefore rate control strategy, [id number] score high-5 (age/gender/CVA hx), apixaban, needs improved lenient rate control Chronic/stable problems History of CVA, ASA Hypertension, BB Hyperlipidemia, statin Osteoporosis, Hypothyroidism, TSH 3.44, thyroid replacement therapy Hyperparathyroidism, Cinacalcet, possible contributory to atrial fibrillation Disposition/overall plan --Patient to continue observation stay for ongoing telemetry monitoring, needs improved lenient rate control --Increase Toprol to 100mg daily (given 18-hour half-life, will consider BID dosing if needed) --Repeat Lasix, 20 mg x 1 at 1400 (avoid thiazide diuretics due to hyperparathyroidism) -Assess Phosphorus, magnesium, --Add PPI given age/anticoagulation/ASA --CODE STATUS, full code
[2020-07-01] MEDS: Omeprazole 20 MG Cap.CR PO SCH (11:15)
[2020-07-01] MEDS: atorvaSTATin 40 MG Tab PO SCH (21:16)
[2020-07-02] MEDS: Levothyroxine 75 MCG Tab PO SCH (06:33)
[2020-07-02] MEDS: Omeprazole 20 MG Cap.CR PO SCH (06:33)
[2020-07-02] MEDS: Apixaban 5 MG Tab PO SCH ×2 (08:35→20:21)
[2020-07-02] MEDS: Magnesium Oxide 500 MG Tab PO SCH (08:35)
[2020-07-02] MEDS: Phosphorus #1 250 MG Tab PO SCH (08:35)
[2020-07-02] MEDS: Aspirin 325 MG Tab.EC PO SCH (08:35)
[2020-07-02] MEDS: Metoprolol Succinate 50 MG Tab.ER PO SCH ×2 (08:35→20:21)
--- NOTE | 2020-07-02 09:14 | PCM.PN ---
- General Info Date of Service: 07/02/20 Functional Status: Reports: Pain Controlled, Tolerating Diet, Urinating. Denies: Ambulating, New Symptoms - Review of Systems General: Denies: Fever, Weakness, Fatigue, Malaise HEENT: Reports: Other (hard of hearing slight) Pulmonary: Reports: No Symptoms Cardiovascular: Denies: Palpitations, Orthopnea, PND, Edema, Lightheadedness Gastrointestinal: Reports: No Symptoms Genitourinary: Reports: No Symptoms Skin: Reports: Pallor Neurological: Denies: Confusion Psychiatric: Denies: Confusion - Patient Data Vitals - Most Recent: Last Vital Signs Temp 97.0 F 07/02/20 06:45 Pulse 81 07/02/20 08:35 Resp 24 H 07/02/20 06:45 BP 138/79 07/02/20 08:35 Pulse Ox 93 L 07/02/20 08:30 Weight - Most Recent: 129 lb 8 oz I&O - Last 24 Hours: Intake & Output 07/01/20 07/02/20 07/02/20 22:59 06:59 14:59 Intake Total 590 150 Output Total 750 250 Balance -160 -100 Lab Results Last 24 Hours: Laboratory Results - last 24 hr 07/01/20 07/01/20 07/01/20 Range/Units 07:25 07:25 07:25 WBC 9.85 (5.00-10.00) 10^3/uL RBC 4.62 (3.80-5.50) 10^6/uL Hgb 10.2 L (12.0-16.0) g/dL Hct 35.0 L (37.0-47.0) % MCV 75.8 L (82.0-92.0) fL MCH 22.1 L (27.0-31.0) pg MCHC 29.1 L (32.0-36.0) g/dL RDW 15.5 H (11.5-14.5) % Plt Count 326 (150-400) 10^3/uL MPV 10.9 H (7.4-10.4) fL Immature Gran % (Auto) 0.2 (0.0-5.0) % Neut % (Auto) 80.2 H (50.0-70.0) % Lymph % (Auto) 9.6 L (20.0-40.0) % [place] % (Auto) 8.0 (2.0-8.0) % Eos % (Auto) 1.6 (1.0-3.0) % Baso % (Auto) 0.4 (0.0-1.0) % Neut # (Auto) 7.89 H (2.50-7.00) 10^3/uL Lymph # (Auto) 0.95 L (1.00-4.00) 10^3/uL [place] # (Auto) 0.79 (0.10-0.80) 10^3/uL Eos # (Auto) 0.16 (0.10-0.30) 10^3/uL Baso # (Auto) 0.04 (0.00-0.10) 10^3/uL Immature Gran # (Auto) 0.02 (0.00-0.50) 10^3/uL Phosphorus (2.6-4.7) mg/dL Magnesium (1.8-2.4) mg/dL Iron (35-145) ug/dL TIBC Cancelled Unsaturated IBC (155-355) ug/dL Transferrin 312 (203-362) mg/dL Transferrin % Sat (20.0-50.0) % Ferritin (11-307) ng/mL 07/01/20 07/01/20 Range/Units 07:25 10:30 WBC (5.00-10.00) 10^3/uL RBC (3.80-5.50) 10^6/uL Hgb (12.0-16.0) g/dL Hct (37.0-47.0) % MCV (82.0-92.0) fL MCH (27.0-31.0) pg MCHC (32.0-36.0) g/dL RDW (11.5-14.5) % Plt Count (150-400) 10^3/uL MPV (7.4-10.4) fL Immature Gran % (Auto) (0.0-5.0) % Neut % (Auto) (50.0-70.0) % Lymph % (Auto) (20.0-40.0) % [place] % (Auto) (2.0-8.0) % Eos % (Auto) (1.0-3.0) % Baso % (Auto) (0.0-1.0) % Neut # (Auto) (2.50-7.00) 10^3/uL Lymph # (Auto) (1.00-4.00) 10^3/uL [place] # (Auto) (0.10-0.80) 10^3/uL Eos # (Auto) (0.10-0.30) 10^3/uL Baso # (Auto) (0.00-0.10) 10^3/uL Immature Gran # (Auto) (0.00-0.50) 10^3/uL Phosphorus 3.2 (2.6-4.7) mg/dL Magnesium 2.0 (1.8-2.4) mg/dL Iron 18 L (35-145) ug/dL TIBC 389 Unsaturated IBC 371 H (155-355) ug/dL Transferrin (203-362) mg/dL Transferrin % Sat 4.6 L (20.0-50.0) % Ferritin 12 (11-307) ng/mL Med Orders - Current: Current Medications Acetaminophen (Acetaminophen 325 Mg Tab) 650 mg PO Q4H PRN PRN Reason: Pain Apixaban (Apixaban 5 Mg Tab) 2.5 mg PO BID [facility] Last Admin: 07/02/20 08:35 Dose: 2.5 mg Documented by: Aspirin (Aspirin 325 Mg Tab.Ec) 325 mg PO DAILY [facility] Last Admin: 07/02/20 08:35 Dose: 325 mg Documented by: Atorvastatin Calcium (Atorvastatin 40 Mg Tab) 80 mg PO BEDTIME [facility] Last Admin: 07/01/20 21:16 Dose: 80 mg Documented by: Digoxin (Digoxin 125 Mcg Tab) 125 mcg PO DAILY [facility] Levothyroxine Sodium (Levothyroxine 75 Mcg Tab) 75 mcg PO ACBREAKFAST [facility] Last Admin: 07/02/20 06:33 Dose: 75 mcg Documented by: Magnesium Oxide (Magnesium Oxide 500 Mg Tab) 500 mg PO DAILY [facility] Last Admin: 07/02/20 08:35 Dose: 500 mg Documented by: Metoprolol Succinate (Metoprolol Succinate 50 Mg Tab.Er) 100 mg PO DAILY [facility] Last Admin: 07/02/20 08:35 Dose: 100 mg Documented by: Metoprolol Succinate (Metoprolol Succinate 50 Mg Tab.Er) 50 mg PO BEDTIME [facility] Omeprazole (Omeprazole 20 Mg Cap.Cr) 20 mg PO ACBREAKFAST [facility] Last Admin: 07/02/20 06:33 Dose: 20 mg Documented by: Sodium Chloride (Sodium Chloride 0.9% 10 Ml Syringe) 10 ml FLUSH Q8HR PRN PRN Reason: keep vein open Sodium Phosphate (Phosphorus #1 250 Mg Tab) 250 mg PO DAILY [facility] Last Admin: 07/02/20 08:35 Dose: 250 mg Documented by: Discontinued Medications Digoxin (Digoxin 125 Mcg Tab) 250 mcg PO ONETIME ONE Stop: 06/30/20 18:19 Last Admin: 06/30/20 18:35 Dose: 250 mcg Documented by: Digoxin (Digoxin 500 Mcg/2 Ml Amp) 250 mcg IVPUSH ONETIME ONE Stop: 07/01/20 05:46 Last Admin: 07/01/20 06:03 Dose: 250 mcg Documented by: Diltiazem HCl (Diltiazem 25 Mg/5 Ml Sdv) 15 mg 0.25 mg/kg (15 mg) IVPUSH NOW ONE Stop: 06/30/20 13:13 Last Admin: 06/30/20 13:22 Dose: 15 mg Documented by: Diltiazem HCl (Diltiazem 25 Mg/5 Ml Sdv) 15 mg IVPUSH ONETIME ONE Stop: 07/01/20 05:20 Last Admin: 07/01/20 05:38 Dose: 15 mg Documented by: Furosemide (Furosemide 40 Mg/4 Ml Vial) 20 mg IVPUSH NOW ONE Stop: 07/01/20 05:19 Last Admin: 07/01/20 05:33 Dose: 20 mg Documented by: Furosemide (Furosemide 40 Mg/4 Ml Vial) 20 mg IVPUSH NOW ONE Stop: 07/01/20 14:01 Last Admin: 07/01/20 13:29 Dose: 20 mg Documented by: Sodium Chloride (Normal Saline) 1,000 mls @ 125 mls/hr IV .BOLUS ONE Stop: 06/30/20 21:18 Last Admin: 06/30/20 13:22 Dose: 125 mls/hr Documented by: Sodium Chloride (Normal Saline) Confirm Administered Dose 1,000 mls @ as directed .ROUTE .STK-MED ONE Stop: 06/30/20 13:21 Last Admin: 06/30/20 13:23 Dose: Not Given Documented by: Metoprolol Succinate (Metoprolol Succinate 25 Mg Tab.Er) 25 mg PO ONETIME ONE Stop: 06/30/20 14:38 Last Admin: 06/30/20 14:55 Dose: 25 mg Documented by: Metoprolol Succinate (Metoprolol Succinate 50 Mg Tab.Er) 50 mg PO DAILY [facility] Last Admin: 07/01/20 08:57 Dose: 50 mg Documented by: Metoprolol Succinate (Metoprolol Succinate 25 Mg Tab.Er) 25 mg PO ONETIME ONE Stop: 06/30/20 17:56 Last Admin: 06/30/20 18:35 Dose: 25 mg Documented by: Metoprolol Succinate (Metoprolol Succinate 25 Mg Tab.Er) 12.5 mg PO ONETIME ONE Stop: 07/01/20 00:17 Last Admin: 07/01/20 00:24 Dose: 12.5 mg Documented by: Metoprolol Succinate (Metoprolol Succinate 25 Mg Tab.Er) Confirm Administered Do se 25 mg .ROUTE .STK-MED ONE Stop: 07/01/20 00:24 Last Admin: 07/01/20 01:21 Dose: Not Given Documented by: Metoprolol Succinate (Metoprolol Succinate 25 Mg Tab.Er) 25 mg PO ONETIME ONE Stop: 07/01/20 05:51 Last Admin: 07/01/20 06:01 Dose: 25 mg Documented by: Metoprolol Succinate (Metoprolol Succinate 50 Mg Tab.Er) 50 mg PO ONETIME ONE Stop: 07/01/20 10:41 Last Admin: 07/01/20 11:14 Dose: 50 mg Documented by: Metoprolol Succinate (Metoprolol Succinate 50 Mg Tab.Er) 50 mg PO ONETIME ONE Stop: 07/01/20 21:01 Last Admin: 07/01/20 21:15 Dose: 50 mg Documented by: Metoprolol Tartrate (Metoprolol Tartrate 25 Mg Tab) 12.5 mg PO ONETIME ONE Stop: 06/30/20 21:27 Last Admin: 06/30/20 21:50 Dose: 12.5 mg Documented by: Cinacalcet [Sensipar (] 60 Mg Tablet) 60 mg PO BID [facility] Last Admin: 06/30/20 23:29 Dose: Not Given Documented by: - Exam Quality Assessment: No: Supplemental Oxygen General: Alert, Oriented Neck: Supple, No JVD Lungs: Clear to Auscultation, Normal Respiratory Effort. No: Decreased Breath Sounds, Crackles, Rhonchi Cardiovascular: Irregular Rhythm. No: Bradycardia, Tachycardia GI/Abdominal Exam: Normal Bowel Sounds, Soft (Female) Exam: Deferred Back Exam: No: CVA Tenderness (L), CVA Tenderness (R) Extremities: No Pedal Edema Peripheral Pulses: 2+: Brachial (R), Radial (L) Skin: Warm, Dry, Intact Neurological: Normal Gait Psy/Mental Status: Alert, Normal Affect, Normal Mood - Patient Data Lab Results Last 24 hrs: Laboratory Results - last 24 hr 07/01/20 07/01/20 07/01/20 Range/Units 07:25 07:25 07:25 WBC 9.85 (5.00-10.00) 10^3/uL RBC 4.62 (3.80-5.50) 10^6/uL Hgb 10.2 L (12.0-16.0) g/dL Hct 35.0 L (37.0-47.0) % MCV 75.8 L (82.0-92.0) fL MCH 22.1 L (27.0-31.0) pg MCHC 29.1 L (32.0-36.0) g/dL RDW 15.5 H (11.5-14.5) % Plt Count 326 (150-400) 10^3/uL MPV 10.9 H (7.4-10.4) fL Immature Gran % (Auto) 0.2 (0.0-5.0) % Neut % (Auto) 80.2 H (50.0-70.0) % Lymph % (Auto) 9.6 L (20.0-40.0) % [place] % (Auto) 8.0 (2.0-8.0) % Eos % (Auto) 1.6 (1.0-3.0) % Baso % (Auto) 0.4 (0.0-1.0) % Neut # (Auto) 7.89 H (2.50-7.00) 10^3/uL Lymph # (Auto) 0.95 L (1.00-4.00) 10^3/uL [place] # (Auto) 0.79 (0.10-0.80) 10^3/uL Eos # (Auto) 0.16 (0.10-0.30) 10^3/uL Baso # (Auto) 0.04 (0.00-0.10) 10^3/uL Immature Gran # (Auto) 0.02 (0.00-0.50) 10^3/uL Phosphorus (2.6-4.7) mg/dL Magnesium (1.8-2.4) mg/dL Iron (35-145) ug/dL TIBC Cancelled Unsaturated IBC (155-355) ug/dL Transferrin 312 (203-362) mg/dL Transferrin % Sat (20.0-50.0) % Ferritin (11-307) ng/mL 07/01/20 07/01/20 Range/Units 07:25 10:30 WBC (5.00-10.00) 10^3/uL RBC (3.80-5.50) 10^6/uL Hgb (12.0-16.0) g/dL Hct (37.0-47.0) % MCV (82.0-92.0) fL MCH (27.0-31.0) pg MCHC (32.0-36.0) g/dL RDW (11.5-14.5) % Plt Count (150-400) 10^3/uL MPV (7.4-10.4) fL Immature Gran % (Auto) (0.0-5.0) % Neut % (Auto) (50.0-70.0) % Lymph % (Auto) (20.0-40.0) % [place] % (Auto) (2.0-8.0) % Eos % (Auto) (1.0-3.0) % Baso % (Auto) (0.0-1.0) % Neut # (Auto) (2.50-7.00) 10^3/uL Lymph # (Auto) (1.00-4.00) 10^3/uL [place] # (Auto) (0.10-0.80) 10^3/uL Eos # (Auto) (0.10-0.30) 10^3/uL Baso # (Auto) (0.00-0.10) 10^3/uL Immature Gran # (Auto) (0.00-0.50) 10^3/uL Phosphorus 3.2 (2.6-4.7) mg/dL Magnesium 2.0 (1.8-2.4) mg/dL Iron 18 L (35-145) ug/dL TIBC 389 Unsaturated IBC 371 H (155-355) ug/dL Transferrin (203-362) mg/dL Transferrin % Sat 4.6 L (20.0-50.0) % Ferritin 12 (11-307) ng/mL Result Diagrams: 07/01/20 07:25 07/02/20 10:06 Sepsis Event Note - Evaluation Sepsis Screening Result: No Definite Risk - Focused Exam Vital Signs: Vital Signs Temp Pulse Pulse Resp BP BP Pulse Ox 07/02/20 08:35 81 138/79 07/02/20 08:30 07/02/20 08:04 07/02/20 06:45 97.0 F 94 24 H 146/68 H 97 07/02/20 02:58 97.1 F 70 22 H 161/81 H 97 07/01/20 22:02 98.1 F 85 24 H 137/74 96 07/01/20 21:15 85 137/74 Pulse Ox Pulse Ox 07/02/20 08:35 07/02/20 08:30 93 L 07/02/20 08:04 94 L 07/02/20 06:45 07/02/20 02:58 07/01/20 22:02 07/01/20 21:15 - Problem List Review Problem List Initiated/Reviewed/Updated: Yes - My Orders Last 24 Hours: My Active Orders 07/01/20 11:00 Omeprazole 20 mg PO ACBREAKFAST 07/02/20 09:00 Metoprolol Succinate [Toprol XL] 100 mg PO DAILY 07/02/20 09:15 Digoxin [Lanoxin] 125 mcg PO DAILY 07/02/20 21:00 Metoprolol Succinate [Toprol XL] 50 mg PO BEDTIME - Plan Plan:: History summary Ms Horton a very pleasant 84-year-old woman that was admitted into OBS status due to atrial fibrillation with RVR. Patient was evaluated by Cindy Doherty NP outlying [facility] yesterday due to shortness of breath weakness and fatigue and tachycardia and she was subsequently sent to the ED for further evaluation. This author had seen patient about a week prior [facility] when she came in due to hypertension I have placed her on metoprolol tartrate. Patient had mainly Dr. With Dr. Xochitl Shrestha and Dr. Rangel in [facility]. Does have hyperparathyroidism ED course 06/30/20 14:37 BNP 880 Trop Neg CXR; small bilat pleural effusions EKG, atrial fibrillation, heart rate 120s HR reduced with the diltiazem. Dose of metoprolol succinate 25 mg x1. 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 Provider ordered 12.5mg of Metoprolol Tartrate to be given now and if at midnight the HR continues above 100, to give 12.5mg Metoprolol Succinate. 07/01/2020 @ 0500, patient noted to on side of bed by nursing with SOB, Pt denied chest pain. VS: T 97.1, HR 125, RR 34, SpO2 96% on 2L, BP 152/104. At 0515 Provider, Dr. Cloud, notified of patient status as well as gradual increase in HR of 120s with brief 130s. Provider ordered a 1x Lasix of 20mg IVP, cardizem 15mg IVP once. At 0530, Dr. Cloud called back and also ordered Lanoxin 0.25mg IVP once and Metoprolol Succinate 25mg PO once. At 0630 pt reported that she was breathing better and vital signs have improved. 07/02/2020; patient improving with improved rate control with metoprolol, digoxin. Has yet to ambulate, resting HR ~90-100. No edema, now off oxygen, lungs now clear. Reviewed hematological indices, widened RDW, low to normal ferritin with low circulating iron and low percentage transferrin all point to ANALILIA. Stool for guaiac pending. Add Retic. Start PO Iron Primary hospital problem --Atrial fibrillation, longstanding/persistent and likely permanent given age therefore rate control strategy, [id number] score high-5 (age/gender/CVA hx), apixaban, needs improved lenient rate control --Anemia, indices strongly suggest ANALILIA etiology i.e RDW/Low Transferrin Sat%. Start on iron Chronic/stable problems History of CVA, ASA Hypertension, BB Hyperlipidemia, statin Osteoporosis, Hypothyroidism, TSH 3.44, thyroid replacement therapy Hyperparathyroidism, Cinacalcet, possible contributory to atrial fibrillation Disposition/overall plan --Change patient to inpatient status due to ongoing monitoring of heart rate, needs more improved optimal/lenient heart rate, --Topol 100 mg a.m. 50 mg p.m. --digoxin 0.125 mcg p.o. daily --Start p.o. iron therapy --PT consultation --CODE STATUS, full code
[2020-07-02] MEDS: Digoxin 125 MCG Tab PO SCH (09:46)
[2020-07-02] MEDS: Ferrous Sulfate 325 MG Tab PO SCH (09:46)
[2020-07-02] MEDS ORDERED: Lidocaine 2% 100 MG/5 ML Syringe IVPUSH PRN (19:27)
[2020-07-02] MEDS ORDERED: Atropine 0.1 MG/ML 10 ML Syringe IVPUSH PRN (19:27)
[2020-07-02] MEDS ORDERED: EPINEPHrine 1:10,000 1 MG/10 ML Syringe IVPUSH PRN (19:27)
[2020-07-02] MEDS ORDERED: Nitroglycerin 0.4 MG Tab.SL SL PRN (19:27)
[2020-07-02] MEDS: atorvaSTATin 40 MG Tab PO SCH (20:21)
[2020-07-03] MEDS: Omeprazole 20 MG Cap.CR PO SCH (06:30)
[2020-07-03] MEDS: Levothyroxine 75 MCG Tab PO SCH (06:30)
[2020-07-03] MEDS: Ferrous Sulfate 325 MG Tab PO SCH (08:40)
[2020-07-03] MEDS: Aspirin 325 MG Tab.EC PO SCH (08:41)
[2020-07-03] MEDS: Magnesium Oxide 500 MG Tab PO SCH (08:41)
[2020-07-03] MEDS: Phosphorus #1 250 MG Tab PO SCH (08:41)
[2020-07-03] MEDS: Metoprolol Succinate 50 MG Tab.ER PO SCH ×2 (08:41→20:37)
[2020-07-03] MEDS: Apixaban 5 MG Tab PO SCH ×2 (08:42→20:36)
[2020-07-03] MEDS: Digoxin 125 MCG Tab PO SCH (08:42)
--- NOTE | 2020-07-03 10:03 | PCM.PN ---
- General Info Date of Service: 07/03/20 Functional Status: Reports: Pain Controlled, Tolerating Diet, Ambulating, New Symptoms (possible bed-bugs) - Review of Systems General: Reports: Weakness HEENT: Reports: No Symptoms Pulmonary: Denies: Shortness of Breath, Cough, Sputum Cardiovascular: Denies: Chest Pain, Palpitations, Orthopnea, PND, Edema Gastrointestinal: Reports: Other (bowel ). Denies: Abdominal Pain, Constipation Genitourinary: Reports: No Symptoms Musculoskeletal: Reports: No Symptoms Skin: Reports: Pallor, Other (very dry skin, ) Neurological: Reports: Weakness. Denies: Paresthesia, Tingling, Tremors, Change in Speech Psychiatric: Reports: Anxiety (situational due to loss of [id number]) - Patient Data Vitals - Most Recent: Last Vital Signs Temp 96.9 F 07/03/20 06:27 Pulse 86 07/03/20 08:42 Resp 16 07/03/20 06:27 BP 136/67 07/03/20 08:41 Pulse Ox 93 L 07/03/20 06:27 Weight - Most Recent: 129 lb 12.8 oz I&O - Last 24 Hours: Intake & Output 07/02/20 07/03/20 07/03/20 22:59 06:59 14:59 Intake Total 550 300 Output Total 400 700 Balance 150 -400 Lab Results Last 24 Hours: Laboratory Results - last 24 hr 07/02/20 07/02/20 Range/Units 10:06 10:06 Absolute Retic 0.0970 (0.0200-0.1000) x10-6 ul Percent Retic 2.1 (0.3-2.2) % Immature Retic Fraction 18.5 H (3.0-15.9) % Retic Hgb Equivalent 19.2 L (31.9-38.5) pg Sodium 142 (136-145) mmol/L Potassium 4.2 (3.5-5.1) mmol/L Chloride 106 (98-107) mmol/L Carbon Dioxide 29.2 (21.0-32.0) mmol/L Anion Gap 11.0 (5-15) mmol/L BUN 25 H (7-18) mg/dL Creatinine 1.24 H (0.51-1.17) mg/dL Est Cr Clr Drug Dosing 28.64 mL/min Estimated GFR (MDRD) 41 mL/min Glucose 74 (70-140) mg/dL Calcium 8.6 L (8.7-10.3) mg/dL Med Orders - Current: Current Medications Acetaminophen (Acetaminophen 325 Mg Tab) 650 mg PO Q4H PRN PRN Reason: Pain Apixaban (Apixaban 5 Mg Tab) 2.5 mg PO BID [facility] Last Admin: 07/03/20 08:42 Dose: 2.5 mg Documented by: Aspirin (Aspirin 325 Mg Tab.Ec) 325 mg PO DAILY [facility] Last Admin: 07/03/20 08:41 Dose: 325 mg Documented by: Atorvastatin Calcium (Atorvastatin 40 Mg Tab) 80 mg PO BEDTIME [facility] Last Admin: 07/02/20 20:21 Dose: 80 mg Documented by: Atropine Sulfate (Atropine 0.1 Mg/Ml 10 Ml Syringe) 0 mg IVPUSH ASDIRECTED PRN PRN Reason: Heart. Digoxin (Digoxin 125 Mcg Tab) 125 mcg PO DAILY [facility] Last Admin: 07/03/20 08:42 Dose: 125 mcg Documented by: Epinephrine HCl (Epinephrine 1:10,000 1 Mg/10 Ml Syringe) 1 mg IVPUSH ASDIRECTED PRN PRN Reason: Heart. Ferrous Sulfate (Ferrous Sulfate 325 Mg Tab) 325 mg PO DAILY [facility] Last Admin: 07/03/20 08:40 Dose: 325 mg Documented by: Levothyroxine Sodium (Levothyroxine 75 Mcg Tab) 75 mcg PO ACBREAKFAST [facility] Last Admin: 07/03/20 06:30 Dose: 75 mcg Documented by: Lidocaine HCl (Lidocaine 2% 100 Mg/5 Ml Syringe) 0 mg IVPUSH ASDIRECTED PRN PRN Reason: Heart. Magnesium Oxide (Magnesium Oxide 500 Mg Tab) 500 mg PO DAILY [facility] Last Admin: 07/03/20 08:41 Dose: 500 mg Documented by: Metoprolol Succinate (Metoprolol Succinate 50 Mg Tab.Er) 100 mg PO DAILY [facility] Last Admin: 07/03/20 08:41 Dose: 100 mg Documented by: Metoprolol Succinate (Metoprolol Succinate 50 Mg Tab.Er) 50 mg PO BEDTIME [facility] Last Admin: 07/02/20 20:21 Dose: 50 mg Documented by: Nitroglycerin (Nitroglycerin 0.4 Mg Tab.Sl) 0.4 mg SL ASDIRECTED PRN PRN Reason: Heart. Omeprazole (Omeprazole 20 Mg Cap.Cr) 20 mg PO ACBREAKFAST [facility] Last Admin: 07/03/20 06:30 Dose: 20 mg Documented by: Sodium Chloride (Sodium Chloride 0.9% 10 Ml Syringe) 10 ml FLUSH Q8HR PRN PRN Reason: keep vein open Sodium Phosphate (Phosphorus #1 250 Mg Tab) 250 mg PO DAILY [facility] Last Admin: 07/03/20 08:41 Dose: 250 mg Documented by: Discontinued Medications Digoxin (Digoxin 125 Mcg Tab) 250 mcg PO ONETIME ONE Stop: 06/30/20 18:19 Last Admin: 06/30/20 18:35 Dose: 250 mcg Documented by: Digoxin (Digoxin 500 Mcg/2 Ml Amp) 250 mcg IVPUSH ONETIME ONE Stop: 07/01/20 05:46 Last Admin: 07/01/20 06:03 Dose: 250 mcg Documented by: Diltiazem HCl (Diltiazem 25 Mg/5 Ml Sdv) 15 mg 0.25 mg/kg (15 mg) IVPUSH NOW ONE Stop: 06/30/20 13:13 Last Admin: 06/30/20 13:22 Dose: 15 mg Documented by: Diltiazem HCl (Diltiazem 25 Mg/5 Ml Sdv) 15 mg IVPUSH ONETIME ONE Stop: 07/01/20 05:20 Last Admin: 07/01/20 05:38 Dose: 15 mg Documented by: Furosemide (Furosemide 40 Mg/4 Ml Vial) 20 mg IVPUSH NOW ONE Stop: 07/01/20 05:19 Last Admin: 07/01/20 05:33 Dose: 20 mg Documented by: Furosemide (Furosemide 40 Mg/4 Ml Vial) 20 mg IVPUSH NOW ONE Stop: 07/01/20 14:01 Last Admin: 07/01/20 13:29 Dose: 20 mg Documented by: Sodium Chloride (Normal Saline) 1,000 mls @ 125 mls/hr IV .BOLUS ONE Stop: 06/30/20 21:18 Last Admin: 06/30/20 13:22 Dose: 125 mls/hr Documented by: Sodium Chloride (Normal Saline) Confirm Administered Dose 1,000 mls @ as directed .ROUTE .STK-MED ONE Stop: 06/30/20 13:21 Last Admin: 06/30/20 13:23 Dose: Not Given Documented by: Metoprolol Succinate (Metoprolol Succinate 25 Mg Tab.Er) 25 mg PO ONETIME ONE Stop: 06/30/20 14:38 Last Admin: 06/30/20 14:55 Dose: 25 mg Documented by: Metoprolol Succinate (Metoprolol Succinate 50 Mg Tab.Er) 50 mg PO DAILY [facility] Last Admin: 07/01/20 08:57 Dose: 50 mg Documented by: Metoprolol Succinate (Metoprolol Succinate 25 Mg Tab.Er) 25 mg PO ONETIME ONE Stop: 06/30/20 17:56 Last Admin: 06/30/20 18:35 Dose: 25 mg Documented by: Metoprolol Succinate (Metoprolol Succinate 25 Mg Tab.Er) 12.5 mg PO ONETIME ONE Stop: 07/01/20 00:17 Last Admin: 07/01/20 00:24 Dose: 12.5 mg Documented by: Metoprolol Succinate (Metoprolol Succinate 25 Mg Tab.Er) Confirm Administered Dose 25 mg .ROUTE .STK-MED ONE Stop: 07/01/20 00:24 Last Admin: 07/01/20 01:21 Dose: Not Given Documented by: Metoprolol Succinate (Metoprolol Succinate 25 Mg Tab.Er) 25 mg PO ONETIME ONE Stop: 07/01/20 05:51 Last Admin: 07/01/20 06:01 Dose: 25 mg Documented by: Metoprolol Succinate (Metoprolol Succinate 50 Mg Tab.Er) 50 mg PO ONETIME ONE Stop: 07/01/20 10:41 Last Admin: 07/01/20 11:14 Dose: 50 mg Documented by: Metoprolol Succinate (Metoprolol Succinate 50 Mg Tab.Er) 50 mg PO ONETIME ONE Stop: 07/01/20 21:01 Last Admin: 07/01/20 21:15 Dose: 50 mg Documented by: Metoprolol Tartrate (Metoprolol Tartrate 25 Mg Tab) 12.5 mg PO ONETIME ONE Stop: 06/30/20 21:27 Last Admin: 06/30/20 21:50 Dose: 12.5 mg Documented by: Cinacalcet [Sensipar (] 60 Mg Tablet) 60 mg PO BID [facility] Last Admin: 06/30/20 23:29 Dose: Not Given Documented by: - Exam Quality Assessment: DVT Prophylaxis (Cross covered). No: Supplemental Oxygen General: Alert, Oriented, Moderate Distress (situational due to loss of [id number]) Neck: Supple, No JVD Lungs: Clear to Auscultation, Normal Respiratory Effort Cardiovascular: Regular Rhythm, Irregular Rhythm GI/Abdominal Exam: Normal Bowel Sounds, Soft (Female) Exam: Deferred Extremities: No Pedal Edema Peripheral Pulses: 2+: Radial (L), 3+: Radial (R) Skin: Other (Small 0.5 mm multiple papules noted all over skin. Possible bedbugs) - Patient Data Lab Results Last 24 hrs: Laboratory Results - last 24 hr 07/02/20 07/02/20 Range/Units 10:06 10:06 Absolute Retic 0.0970 (0.0200-0.1000) x10-6 ul Percent Retic 2.1 (0.3-2.2) % Immature Retic Fraction 18.5 H (3.0-15.9) % Retic Hgb Equivalent 19.2 L (31.9-38.5) pg Sodium 142 (136-145) mmol/L Potassium 4.2 (3.5-5.1) mmol/L Chloride 106 (98-107) mmol/L Carbon Dioxide 29.2 (21.0-32.0) mmol/L Anion Gap 11.0 (5-15) mmol/L BUN 25 H (7-18) mg/dL Creatinine 1.24 H (0.51-1.17) mg/dL Est Cr Clr Drug Dosing 28.64 mL/min Estimated GFR (MDRD) 41 mL/min Glucose 74 (70-140) mg/dL Calcium 8.6 L (8.7-10.3) mg/dL Result Diagrams: 07/01/20 07:25 07/02/20 10:06 Sepsis Event Note - Evaluation Sepsis Screening Result: No Definite Risk - Focused Exam Vital Signs: Vital Signs Temp Pulse Pulse Resp BP BP Pulse Ox 07/03/20 08:42 86 07/03/20 08:41 86 136/67 07/03/20 06:27 96.9 F 88 16 168/91 H 93 L 07/03/20 02:07 97.3 F 73 18 141/86 H 94 L 07/02/20 22:48 97.7 F 91 20 133/94 H 93 L - Problem List Review Problem List Initiated/Reviewed/Updated: Yes - My Orders Last 24 Hours: My Active Orders 07/02/20 09:00 Metoprolol Succinate [Toprol XL] 100 mg PO DAILY 07/02/20 09:15 Digoxin [Lanoxin] 125 mcg PO DAILY Ferrous Sulfate 325 mg PO DAILY 07/02/20 17:00 Patient Status [ADT] Routine Consult to Physical Therapy [PT Evaluation and Treatment] [CONS] Routine 07/02/20 21:00 Metoprolol Succinate [Toprol XL] 50 mg PO BEDTIME - Plan Plan:: History summary Ms Horton a very pleasant 84-year-old woman that was admitted into OBS status due to atrial fibrillation with RVR. Patient was evaluated by Cindy Doherty NP outlying [facility] yesterday due to shortness of breath weakness and fatigue and tachycardia and she was subsequently sent to the ED for further evaluation. This author had seen patient about a week prior [facility] when she came in due to hypertension I have placed her on metoprolol tartrate. Patient had mainly Dr. With Dr. Xochitl Shrestha and Dr. Rangel in [facility]. Does have hyperparathyroidism ED course 06/30/20 14:37 BNP 880 Trop Neg CXR; small bilat pleural effusions EKG, atrial fibrillation, heart rate 120s HR reduced with the diltiazem. Dose of metoprolol succinate 25 mg x1. 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 Provider ordered 12.5mg of Metoprolol Tartrate to be given now and if at midnight the HR continues above 100, to give 12.5mg Metoprolol Succinate. 07/01/2020 @ 0500, patient noted to on side of bed by nursing with SOB, Pt denied chest pain. VS: T 97.1, HR 125, RR 34, SpO2 96% on 2L, BP 152/104. At 0515 Provider, Dr. Cloud, notified of patient status as well as gradual increase in HR of 120s with brief 130s. Provider ordered a 1x Lasix of 20mg IVP, cardizem 15mg IVP once. At 0530, Dr. Cloud called back and also ordered Lanoxin 0.25mg IVP once and Metoprolol Succinate 25mg PO once. At 0630 pt reported that she was breathing better and vital signs have improved. 07/02/2020; patient improving with improved rate control with metoprolol, digoxin. Has yet to ambulate, resting HR ~90-100. No edema, now off oxygen, lungs now clear. Reviewed hematological indices, widened RDW, low to normal ferritin with low circulating iron and low percentage transferrin all point to ANALILIA. Stool for guaiac pending. Add Retic. Started PO Iron 07/03/2020; reviewed overnight telemetry strips, irregular rhythm however good lenient rate control while resting however breakthrough tachycardia 120s upon ambulation, less shortness of breath. No longer on oxygen. No JVD, tolerating twice daily Toprol without decompensation. Digoxin started this admission. Patient's blood pressure not optimal however somewhat contributable to situational anxiety as the patient's son-in-law . Nurses concerned about bedbugs, patient does have very dry skin with multiple papules however exam not quite consistent however patient did have extensive shower and a change of room. Primary hospital problem --Atrial fibrillation, longstanding/persistent and likely permanent given age therefore rate control strategy, [id number] score high-5 (age/gender/CVA hx), apixaban, needs improved rate control on exertion. BB therapy, Digoxin started this admission --Situational anxiety, One-time Xanax 0.25 mg --Anemia, indices strongly suggest ANALILIA etiology i.e wide RDW/Low Transferrin Sat%. Started on iron. Stools for guaiac, prevent blood draw anemia --Heart Failure, clinical this admission, will need o/p ECHO, only PRN diuretics necessary --Possible bed bugs, monitor, changed rooms Chronic/stable problems History of CVA, ASA Hypertension, BB Hyperlipidemia, statin Osteoporosis, Hypothyroidism, TSH 3.44, thyroid replacement therapy Hyperparathyroidism, Cinacalcet, possible contributory to atrial fibrillation Social Unable to return home per landlord. Possible psychiatric history triggering l evel-2 LTC placement difficulty. Will have to determine whether the patient will need 60% assistance for her ADL's. Full code Disposition/overall plan --Cont with inpatient status due to ongoing monitoring of heart rate, needs more improved optimal/lenient heart rate, --Topol 100 mg a.m. 50 mg p.m. (given 18-hour half-life, BID dosing my benefit her) --Digoxin 0.125 mcg p.o. daily --Add Vit C to her Iron, --Skin emollient after showers --Add Xanax 0.25 mg PRN --PT consultation, consideration of swing bed status [facility] --CODE STATUS, full code
[2020-07-03] MEDS ORDERED: ALPRAZolam 0.25 MG Tab PO ONE (10:16)
[2020-07-03] MEDS ORDERED: ALPRAZolam 0.25 MG Tab PO PRN (10:57)
[2020-07-03] MEDS: atorvaSTATin 40 MG Tab PO SCH (20:36)
[2020-07-04] MEDS: Omeprazole 20 MG Cap.CR PO SCH ×2 (06:12→06:29)
[2020-07-04] MEDS: Levothyroxine 75 MCG Tab PO SCH ×2 (06:12→06:29)
[2020-07-04] MEDS: Apixaban 5 MG Tab PO SCH ×2 (08:34→21:32)
[2020-07-04] MEDS: Metoprolol Succinate 50 MG Tab.ER PO SCH ×2 (08:35→21:32)
[2020-07-04] MEDS: Aspirin 325 MG Tab.EC PO SCH (08:35)
[2020-07-04] MEDS: Magnesium Oxide 500 MG Tab PO SCH (08:35)
[2020-07-04] MEDS: Digoxin 125 MCG Tab PO SCH (08:35)
[2020-07-04] MEDS: Phosphorus #1 250 MG Tab PO SCH (08:36)
[2020-07-04] MEDS: Ferrous Sulfate 325 MG Tab PO SCH (09:27)
[2020-07-04] MEDS: Ascorbic Acid 500 MG Tab PO SCH (09:28)
--- NOTE | 2020-07-04 20:56 | PCM.PN ---
- General Info Date of Service: 07/04/20 Subjective Update: Ms. Horton reports improvement in "fast heart" today. Endorses much improved shortness of breath. Denies any chest pain. Eating and drinking, voiding, and stooling well. Strongly desires discharge back to home and states she would rather " than go to a fdc." Endorses feeling sad over [id number] recent , but feels good about being able to see her via live stream this afternoon. No nursing concerns. - Patient Data Vitals - Most Recent: Last Vital Signs Temp 36.6 C 07/04/20 19:00 Pulse 101 H 07/04/20 19:00 Resp 30 H 07/04/20 19:00 BP 140/83 07/04/20 19:00 Pulse Ox 99 07/04/20 19:00 Weight - Most Recent: 57.663 kg I&O - Last 24 Hours: Intake & Output 07/04/20 07/04/20 07/04/20 06:59 14:59 22:59 Intake Total 100 1020 Balance 100 1020 Med Orders - Current: Current Medications Acetaminophen (Acetaminophen 325 Mg Tab) 650 mg PO Q4H PRN PRN Reason: Pain Alprazolam (Alprazolam 0.25 Mg Tab) 0.25 mg PO Q8H PRN PRN Reason: Situational anxiety Apixaban (Apixaban 5 Mg Tab) 2.5 mg PO BID [facility] Last Admin: 07/04/20 08:34 Dose: 2.5 mg Documented by: Ascorbic Acid (Ascorbic Acid 500 Mg Tab) 500 mg PO MOWEFR [facility] Last Admin: 07/04/20 09:28 Dose: 500 mg Documented by: Aspirin (Aspirin 325 Mg Tab.Ec) 325 mg PO DAILY [facility] Last Admin: 07/04/20 08:35 Dose: 325 mg Documented by: Atorvastatin Calcium (Atorvastatin 40 Mg Tab) 80 mg PO BEDTIME [facility] Last Admin: 07/03/20 20:36 Dose: 80 mg Documented by: Digoxin (Digoxin 125 Mcg Tab) 125 mcg PO DAILY [facility] Last Admin: 07/04/20 08:35 Dose: 125 mcg Documented by: Ferrous Sulfate (Ferrous Sulfate 325 Mg Tab) 325 mg PO MOWEFR [facility] Last Admin: 07/04/20 09:27 Dose: 325 mg Documented by: Levothyroxine Sodium (Levothyroxine 75 Mcg Tab) 75 mcg PO ACBREAKFAST [facility] Last Admin: 07/04/20 06:29 Dose: Not Given Documented by: Magnesium Oxide (Magnesium Oxide 500 Mg Tab) 500 mg PO DAILY [facility] Last Admin: 07/04/20 08:35 Dose: 500 mg Documented by: Metoprolol Succinate (Metoprolol Succinate 50 Mg Tab.Er) 100 mg PO DAILY [facility] Last Admin: 07/04/20 08:35 Dose: 100 mg Documented by: Metoprolol Succinate (Metoprolol Succinate 50 Mg Tab.Er) 50 mg PO BEDTIME [facility] Last Admin: 07/03/20 20:37 Dose: 50 mg Documented by: Omeprazole (Omeprazole 20 Mg Cap.Cr) 20 mg PO ACBREAKFAST [facility] Last Admin: 07/04/20 06:29 Dose: Not Given Documented by: Sodium Chloride (Sodium Chloride 0.9% 10 Ml Syringe) 10 ml FLUSH Q8HR PRN PRN Reason: keep vein open Sodium Phosphate (Phosphorus #1 250 Mg Tab) 250 mg PO DAILY [facility] Last Admin: 07/04/20 08:36 Dose: 250 mg Documented by: Discontinued Medications Alprazolam (Alprazolam 0.25 Mg Tab) 0.25 mg PO NOW ONE Stop: 07/03/20 10:17 Last Admin: 07/03/20 11:23 Dose: Not Given Documented by: Atropine Sulfate (Atropine 0.1 Mg/Ml 10 Ml Syringe) 0 mg IVPUSH ASDIRECTED PRN PRN Reason: Heart. Digoxin (Digoxin 125 Mcg Tab) 250 mcg PO ONETIME ONE Stop: 06/30/20 18:19 Last Admin: 06/30/20 18:35 Dose: 250 mcg Documented by: Digoxin (Digoxin 500 Mcg/2 Ml Amp) 250 mcg IVPUSH ONETIME ONE Stop: 07/01/20 05:46 Last Admin: 07/01/20 06:03 Dose: 250 mcg Documented by: Diltiazem HCl (Diltiazem 25 Mg/5 Ml Sdv) 15 mg 0.25 mg/kg (15 mg) IVPUSH NOW ONE Stop: 06/30/20 13:13 Last Admin: 06/30/20 13:22 Dose: 15 mg Documented by: Diltiazem HCl (Diltiazem 25 Mg/5 Ml Sdv) 15 mg IVPUSH ONETIME ONE Stop: 07/01/20 05:20 Last Admin: 07/01/20 05:38 Dose: 15 mg Documented by: Epinephrine HCl (Epinephrine 1:10,000 1 Mg/10 Ml Syringe) 1 mg IVPUSH ASDIRECTED PRN PRN Reason: Heart. Ferrous Sulfate (Ferrous Sulfate 325 Mg Tab) 325 mg PO DAILY [facility] Last Admin: 07/03/20 08:40 Dose: 325 mg Documented by: Furosemide (Furosemide 40 Mg/4 Ml Vial) 20 mg IVPUSH NOW ONE Stop: 07/01/20 05:19 Last Admin: 07/01/20 05:33 Dose: 20 mg Documented by: Furosemide (Furosemide 40 Mg/4 Ml Vial) 20 mg IVPUSH NOW ONE Stop: 07/01/20 14:01 Last Admin: 07/01/20 13:29 Dose: 20 mg Documented by: Sodium Chloride (Normal Saline) 1,000 mls @ 125 mls/hr IV .BOLUS ONE Stop: 06/30/20 21:18 Last Admin: 06/30/20 13:22 Dose: 125 mls/hr Documented by: Sodium Chloride (Normal Saline) Confirm Administered Dose 1,000 mls @ as directed .ROUTE .STK-MED ONE Stop: 06/30/20 13:21 Last Admin: 06/30/20 13:23 Dose: Not Given Documented by: Lidocaine HCl (Lidocaine 2% 100 Mg/5 Ml Syringe) 0 mg IVPUSH ASDIRECTED PRN PRN Reason: Heart. Metoprolol Succinate (Metoprolol Succinate 25 Mg Tab.Er) 25 mg PO ONETIME ONE Stop: 06/30/20 14:38 Last Admin: 06/30/20 14:55 Dose: 25 mg Documented by: Metoprolol Succinate (Metoprolol Succinate 50 Mg Tab.Er) 50 mg PO DAILY [facility] Last Admin: 07/01/20 08:57 Dose: 50 mg Documented by: Metoprolol Succinate (Metoprolol Succinate 25 Mg Tab.Er) 25 mg PO ONETIME ONE Stop: 06/30/20 17:56 Last Admin: 06/30/20 18:35 Dose: 25 mg Documented by: Metoprolol Succinate (Metoprolol Succinate 25 Mg Tab.Er) 12.5 mg PO ONETIME ONE Stop: 07/01/20 00:17 Last Admin: 07/01/20 00:24 Dose: 12.5 mg Documented by: Metoprolol Succinate (Metoprolol Succinate 25 Mg Tab.Er) Confirm Administered Dose 25 mg .ROUTE .STK-MED ONE Stop: 07/01/20 00:24 Last Admin: 07/01/20 01:21 Dose: Not Given Documented by: Metoprolol Succinate (Metoprolol Succinate 25 Mg Tab.Er) 25 mg PO ONETIME ONE Stop: 07/01/20 05:51 Last Admin: 07/01/20 06:01 Dose: 25 mg Documented by: Metoprolol Succinate (Metoprolol Succinate 50 Mg Tab.Er) 50 mg PO ONETIME ONE Stop: 07/01/20 10:41 Last Admin: 07/01/20 11:14 Dose: 50 mg Documented by: Metoprolol Succinate (Metoprolol Succinate 50 Mg Tab.Er) 50 mg PO ONETIME ONE Stop: 07/01/20 21:01 Last Admin: 07/01/20 21:15 Dose: 50 mg Documented by: Metoprolol Tartrate (Metoprolol Tartrate 25 Mg Tab) 12.5 mg PO ONETIME ONE Stop: 06/30/20 21:27 Last Admin: 06/30/20 21:50 Dose: 12.5 mg Documented by: Nitroglycerin (Nitroglycerin 0.4 Mg Tab.Sl) 0.4 mg SL ASDIRECTED PRN PRN Reason: Heart. Cinacalcet [Sensipar (] 60 Mg Tablet) 60 mg PO BID [facility] Last Admin: 06/30/20 23:29 Dose: Not Given Documented by: - Exam Physical Findings Comments:: GENERAL: Thin, mildly disheveled elderly white female sitting in bedside chair in no acute distress. HEENT: Normocephalic, atraumatic. Conjunctiva clear. Nares patent without discharge. Mucous membranes moist, posterior pharynx unremarkable. NECK: Supple, no masses. CV: Irregularly irregular with current rate ~80, no murmurs, rubs, or gallops. 2+ radial pulses. PULMONARY: Normal effort, clear to auscultation bilaterally, no wheezes, rales, or rhonchi. ABDOMEN: Positive bowel sounds, soft, nontender, nondistended. EXTREMITIES: No edema. MUSCULOSKELETAL: Moves all extremities well. NEUROLOGICAL: No obvious deficits. DERMATOLOGIC: Scattered excoriations. No obvious rash in exposed areas. PSYCHIATRIC: Alert, interactive, answers most questions appropriately, mildly labile affect, decreased insight and judgment. - Patient Data Result Diagrams: 07/01/20 07:25 07/02/20 10:06 Sepsis Event Note - Evaluation Sepsis Screening Result: No Definite Risk - Focused Exam Vital Signs: Vital Signs Temp Pulse Resp BP Pulse Ox 07/04/20 19:00 36.6 C 101 H 30 H 140/83 99 07/04/20 15:00 35.9 C L 88 24 H 136/67 98 07/04/20 11:00 36.4 C 87 36 H 142/50 H 97 - Problem List Review Problem List Initiated/Reviewed/Updated: Yes - My Orders Last 24 Hours: My Active Orders 07/04/20 10:01 Vital Signs [RC] 03,07,11,15,19,23 07/04/20 19:13 OCCULT BLOOD SCREEN [OP] Routine - Plan Plan:: HPI summary: Ms. Horton a an 84yoF with a history notable for atrial fibrillation who was seen by TREASURE Montalvo, at [facility] on the date of admission for shortness of breath and tachycardia. Due to [place] diagnostics [place], guardian was contacted and she was transferred to the [facility] ED for further evaluation. She reported about a week of progressive symptoms. She had been seen a week prior on 06/23/20 by TREASURE Walter, for tachycardia at which time she was started on metoprolol succinate 50mg daily. Notable ED course: Pulse 130s BNP 880 Trop negative CXR with small bilateral pleural effusions EKG with atrial fibrillation, heart rate 120s, no other notable abnormalities Diltiazem 15mg given with good response Metoprolol succinate 25 mg given x1 Admitted to observation status for further management of atrial fibrillation with RVR Hospital course: 06/30/2020: @2130, contact lens manufacturer provider ordered one-time dose of metoprolol tartrate 12.5mg for HR greater than 100 and if at midnight the HR continues above 100, to give 12.5mg metoprolol succinate. 07/01/2020: @ 0500, patient noted to on side of bed by nursing with SOB, but denied chest pain. VS: T 97.1, HR 125, RR 34, SpO2 96% on 2L, BP 152/104. @0515, Dr. Cloud, notified of patient status as well as gradual increase in HR of 120s with brief 130s and furosemide 20mg IV and diltiazem 15mg IV given. @529, Dr. Cloud called back and also ordered digoxin 0.25mg IV and metoprolol succinate 25mg PO. @629, pt reported that she was breathing better and vital signs have improved. 07/02/2020: Patient with improved rate control with metoprolol, digoxin. Has yet to ambulate, resting HR 90-100. No edema, now off oxygen, lungs clear. Reviewed hematological indices, widened RDW, low to normal ferritin with low circulating iron and low percentage transferrin all point to ANALILIA. Stool for guaiac pending. Add Retic. Started po iron. 07/03/2020: Reviewed overnight telemetry strips with irregular rhythm however good lenient rate control while resting however breakthrough tachycardia 120s upon ambulation. Less shortness of breath. No longer on oxygen. No JVD, tolerating twice daily metoprolol succinate without decompensation. Patient's blood pressure not optimally controlled however somewhat likely due to situational anxiety as the patient's [id number] just . Nurses concerned about bedbugs, patient does have very dry skin with multiple papules however exam not quite consistent however patient did have extensive shower and a change of room. 07/04/20: Patient with ongoing improvement in cardiovascular status. Pulse well controlled at rest with less breakthrough with exertion. Volume status now neutral. Labs stable. Placement accepted at [facility] on 07/07/20 for which guardian in agreement; patient notified of this and with significant reservation about going. Hospitalization problems and plan: # Atrial fibrillation, longstanding and likely permanent, with RVR: RVR im proving. # Heart failure: Clinical diagnosis this admission. No recent echo. - Continue metoprolol succinate 100mg AM and 50mg PM, digoxin 125mcg, apixaban 2.5mg BID (reduced dosing due to age >80 and wt <60kg) - Plan for outpatient echo - Monitor fluid status with I/O and daily weight # Anemia, iron deficiency - Continue iron and vitamin C MWF, omeprazole 20mg daily - Await occult stool testing (1 negative thus far) # Situational anxiety: Related to recent of [id number]. Grieving appropriately. - Continue alprazolam 0.25mg TID prn for acute anxiety - Monitor closely and consider starting SSRI or mirtazapine if concern for more longstanding mood disturbance # Cognitive impairment: Has appointed guardian due to underlying cognitive impairment, likely at least related to prior CVA and possible prior psychiatric history. [facility] unable to accept patient back. # Deconditioning # ADL deficit - Continue physical therapy - Plan for placement at [facility] on 07/07/20, for which coordination by social work/case management with patient's guardian is greatly appreciated Chronic, stable conditions: # History of CVA: Continue ASA 325mg daily. # Hypertension: Continue metoprolol, as above. # CKD, stage 3b: Stable. # Hyperlipidemia: 11/20/19 lipid panel with LDL 55. Continue atorvastatin 80mg daily. # Hypothyroidism: 06/23/20 TSH 3.44. Continue levothyroxine 75mcg daily. # Hyperparathyroidism: 11/19/19 PTH 281. Today's calcium 8.6. Continue PhosLo. # Hypomagnesemia: 07/01/20 Mg 2.0. Continue magnesium oxide 500mg daily. Hospitalization details: # FEN: No IVF. Electrolytes normal. Heart healthy diet. # PPX: On apixaban, sufficient for DVT ppx. Melatonin for delirium ppx. # Code status: FULL. # Emergency contact: ramo Gomez through [facility]. # Disposition: Continue inpatient status for ongoing improved management of atrial fibrillation rate control. Anticipate discharge to [facility] on 07/07/20.
[2020-07-04] MEDS: atorvaSTATin 40 MG Tab PO SCH (21:32)
[2020-07-05] MEDS: Omeprazole 20 MG Cap.CR PO SCH (07:56)
[2020-07-05] MEDS: Levothyroxine 75 MCG Tab PO SCH (07:56)
--- NOTE | 2020-07-05 08:06 | PCM.PN ---
- General Info Date of Service: 07/05/20 Functional Status: Reports: Pain Controlled - Review of Systems General: Denies: Fever Pulmonary: Reports: No Symptoms Cardiovascular: Denies: Chest Pain, Palpitations, Dyspnea on Exertion, Ort hopnea, PND, Edema Gastrointestinal: Reports: No Symptoms Genitourinary: Reports: No Symptoms Musculoskeletal: Reports: No Symptoms Neurological: Reports: No Symptoms Psychiatric: Reports: Agitation - Patient Data Vitals - Most Recent: Last Vital Signs Temp 98.5 F 07/05/20 06:37 Pulse 68 07/05/20 06:37 Resp 20 07/05/20 06:37 BP 145/63 H 07/05/20 06:37 Pulse Ox 94 L 07/05/20 06:37 Weight - Most Recent: 127 lb 2 oz I&O - Last 24 Hours: Intake & Output 07/04/20 07/05/20 07/05/20 22:59 06:59 14:59 Intake Total 770 0 Balance 770 0 Med Orders - Current: Current Medications Acetaminophen (Acetaminophen 325 Mg Tab) 650 mg PO Q4H PRN PRN Reason: Pain Alprazolam (Alprazolam 0.25 Mg Tab) 0.25 mg PO Q8H PRN PRN Reason: Situational anxiety Apixaban (Apixaban 5 Mg Tab) 2.5 mg PO BID [facility] Last Admin: 07/04/20 21:32 Dose: 2.5 mg Documented by: Ascorbic Acid (Ascorbic Acid 500 Mg Tab) 500 mg PO MOWEFR [facility] Last Admin: 07/04/20 09:28 Dose: 500 mg Documented by: Aspirin (Aspirin 325 Mg Tab.Ec) 325 mg PO DAILY [facility] Last Admin: 07/04/20 08:35 Dose: 325 mg Documented by: Atorvastatin Calcium (Atorvastatin 40 Mg Tab) 80 mg PO BEDTIME [facility] Last Admin: 07/04/20 21:32 Dose: 80 mg Documented by: Digoxin (Digoxin 125 Mcg Tab) 125 mcg PO DAILY [facility] Last Admin: 07/04/20 08:35 Dose: 125 mcg Documented by: Ferrous Sulfate (Ferrous Sulfate 325 Mg Tab) 325 mg PO MOWEFR [facility] Last Admin: 07/04/20 09:27 Dose: 325 mg Documented by: Levothyroxine Sodium (Levothyroxine 75 Mcg Tab) 75 mcg PO ACBREAKFAST [facility] Last Admin: 07/05/20 07:56 Dose: 75 mcg Documented by: Magnesium Oxide (Magnesium Oxide 500 Mg Tab) 500 mg PO DAILY [facility] Last Admin: 07/04/20 08:35 Dose: 500 mg Documented by: Metoprolol Succinate (Metoprolol Succinate 50 Mg Tab.Er) 100 mg PO DAILY [facility] Last Admin: 07/04/20 08:35 Dose: 100 mg Documented by: Metoprolol Succinate (Metoprolol Succinate 50 Mg Tab.Er) 50 mg PO BEDTIME [facility] Last Admin: 07/04/20 21:32 Dose: 50 mg Documented by: Omeprazole (Omeprazole 20 Mg Cap.Cr) 20 mg PO ACBREAKFAST [facility] Last Admin: 07/05/20 07:56 Dose: 20 mg Documented by: Sodium Chloride (Sodium Chloride 0.9% 10 Ml Syringe) 10 ml FLUSH Q8HR PRN PRN Reason: keep vein open Sodium Phosphate (Phosphorus #1 250 Mg Tab) 250 mg PO DAILY [facility] Last Admin: 07/04/20 08:36 Dose: 250 mg Documented by: Discontinued Medications Alprazolam (Alprazolam 0.25 Mg Tab) 0.25 mg PO NOW ONE Stop: 07/03/20 10:17 Last Admin: 07/03/20 11:23 Dose: Not Given Documented by: Atropine Sulfate (Atropine 0.1 Mg/Ml 10 Ml Syringe) 0 mg IVPUSH ASDIRECTED PRN PRN Reason: Heart. Digoxin (Digoxin 125 Mcg Tab) 250 mcg PO ONETIME ONE Stop: 06/30/20 18:19 Last Admin: 06/30/20 18:35 Dose: 250 mcg Documented by: Digoxin (Digoxin 500 Mcg/2 Ml Amp) 250 mcg IVPUSH ONETIME ONE Stop: 07/01/20 05:46 Last Admin: 07/01/20 06:03 Dose: 250 mcg Documented by: Diltiazem HCl (Diltiazem 25 Mg/5 Ml Sdv) 15 mg 0.25 mg/kg (15 mg) IVPUSH NOW ONE Stop: 06/30/20 13:13 Last Admin: 06/30/20 13:22 Dose: 15 mg Documented by: Diltiazem HCl (Diltiazem 25 Mg/5 Ml Sdv) 15 mg IVPUSH ONETIME ONE Stop: 07/01/20 05:20 Last Admin: 07/01/20 05:38 Dose: 15 mg Documented by: Epinephrine HCl (Epinephrine 1:10,000 1 Mg/10 Ml Syringe) 1 mg IVPUSH ASDIRECTED PRN PRN Reason: Heart. Ferrous Sulfate (Ferrous Sulfate 325 Mg Tab) 325 mg PO DAILY [facility] Last Admin: 07/03/20 08:40 Dose: 325 mg Documented by: Furosemide (Furosemide 40 Mg/4 Ml Vial) 20 mg IVPUSH NOW ONE Stop: 07/01/20 05:19 Last Admin: 07/01/20 05:33 Dose: 20 mg Documented by: Furosemide (Furosemide 40 Mg/4 Ml Vial) 20 mg IVPUSH NOW ONE Stop: 07/01/20 14:01 Last Admin: 07/01/20 13:29 Dose: 20 mg Documented by: Sodium Chloride (Normal Saline) 1,000 mls @ 125 mls/hr IV .BOLUS ONE Stop: 06/30/20 21:18 Last Admin: 06/30/20 13:22 Dose: 125 mls/hr Documented by: Sodium Chloride (Normal Saline) Confirm Administered Dose 1,000 mls @ as directed .ROUTE .STK-MED ONE Stop: 06/30/20 13:21 Last Admin: 06/30/20 13:23 Dose: Not Given Documented by: Lidocaine HCl (Lidocaine 2% 100 Mg/5 Ml Syringe) 0 mg IVPUSH ASDIRECTED PRN PRN Reason: Heart. Metoprolol Succinate (Metoprolol Succinate 25 Mg Tab.Er) 25 mg PO ONETIME ONE Stop: 06/30/20 14:38 Last Admin: 06/30/20 14:55 Dose: 25 mg Documented by: Metoprolol Succinate (Metoprolol Succinate 50 Mg Tab.Er) 50 mg PO DAILY [facility] Last Admin: 07/01/20 08:57 Dose: 50 mg Documented by: Metoprolol Succinate (Metoprolol Succinate 25 Mg Tab.Er) 25 mg PO ONETIME ONE Stop: 06/30/20 17:56 Last Admin: 06/30/20 18:35 Dose: 25 mg Documented by: Metoprolol Succinate (Metoprolol Succinate 25 Mg Tab.Er) 12.5 mg PO ONETIME ONE Stop: 07/01/20 00:17 Last Admin: 07/01/20 00:24 Dose: 12.5 mg Documented by: Metoprolol Succinate (Metoprolol Succinate 25 Mg Tab.Er) Confirm Administered Dose 25 mg .ROUTE .STK-MED ONE Stop: 07/01/20 00:24 Last Admin: 07/01/20 01:21 Dose: Not Given Documented by: Metoprolol Succinate (Metoprolol Succinate 25 Mg Tab.Er) 25 mg PO ONETIME ONE Stop: 07/01/20 05:51 Last Admin: 07/01/20 06:01 Dose: 25 mg Documented by: Metoprolol Succinate (Metoprolol Succinate 50 Mg Tab.Er) 50 mg PO ONETIME ONE Stop: 07/01/20 10:41 Last Admin: 07/01/20 11:14 Dose: 50 mg Documented by: Metoprolol Succinate (Metoprolol Succinate 50 Mg Tab.Er) 50 mg PO ONETIME ONE Stop: 07/01/20 21:01 Last Admin: 07/01/20 21:15 Dose: 50 mg Documented by: Metoprolol Tartrate (Metoprolol Tartrate 25 Mg Tab) 12.5 mg PO ONETIME ONE Stop: 06/30/20 21:27 Last Admin: 06/30/20 21:50 Dose: 12.5 mg Documented by: Nitroglycerin (Nitroglycerin 0.4 Mg Tab.Sl) 0.4 mg SL ASDIRECTED PRN PRN Reason: Heart. Cinacalcet [Sensipar (] 60 Mg Tablet) 60 mg PO BID [facility] Last Admin: 06/30/20 23:29 Dose: Not Given Documented by: - Exam General: Alert, Oriented, Other (thin, elderly female lying in bed) Neck: Supple Lungs: Clear to Auscultation, Normal Respiratory Effort Cardiovascular: Irregular Rhythm GI/Abdominal Exam: Normal Bowel Sounds, Soft, Non-Tender (Female) Exam: Deferred Extremities: No Pedal Edema Skin: Warm, Other (scattered excorations primarily to the arms and legs, dry skin) Neurological: No New Focal Deficit Psy/Mental Status: Other (somewhat irritable) - Patient Data Result Diagrams: 07/01/20 07:25 07/02/20 10:06 Sepsis Event Note - Evaluation Sepsis Screening Result: No Definite Risk - Focused Exam Vital Signs: Vital Signs Temp Pulse Pulse Resp BP BP Pulse Ox 07/05/20 06:37 98.5 F 68 20 145/63 H 94 L 07/04/20 22:47 97.2 F 93 20 126/62 97 07/04/20 21:32 93 126/62 - Problem List Review Problem List Initiated/Reviewed/Updated: Yes - Plan Plan:: HPI summary: Ms. Clifford evangelista an 84yoF with a history notable for atrial fibrillation who was seen by TREASURE Montalvo, at [facility] on the date of admission for shortness of breath and tachycardia. Due [place] diagnostics [place], guardian was contacted and she was transferred to the [facility] ED for further evaluation. She reported about a week of progressive symptoms. She had been seen a week prior on 06/23/20 by TREASURE Walter, for tachycardia at which time she was started on metoprolol succinate 50mg daily. Notable ED course: Pulse 130s BNP 880 Trop negative CXR with small bilateral pleural effusions EKG with atrial fibrillation, heart rate 120s, no other notable abnormalities Diltiazem 15mg given with good response Metoprolol succinate 25 mg given x1 Admitted to observation status for further management of atrial fibrillation with RVR Hospital course: 06/30/2020: @2130, outside residential sales professional provider ordered one-time dose of metoprolol tartrate 12.5mg for HR greater than 100 and if at midnight the HR continues above 100, to give 12.5mg metoprolol succinate. 07/01/2020: @ 0500, patient noted to on side of bed by nursing with SOB, but denied chest pain. VS: T 97.1, HR 125, RR 34, SpO2 96% on 2L, BP 152/104. @0515, Dr. Cloud, notified of patient status as well as gradual increase in HR of 120s with brief 130s and furosemide 20mg IV and diltiazem 15mg IV given. @0530, Dr. Cloud called back and also ordered digoxin 0.25mg IV and metoprolol succinate 25mg PO. @0630, pt reported that she was breathing better and vital signs have improved. 07/02/2020: Patient with improved rate control with metoprolol, digoxin. Has yet to ambulate, resting HR 90-100. No edema, now off oxygen, lungs clear. Reviewed hematological indices, widened RDW, low to normal ferritin with low circulating iron and low percentage transferrin all point to ANALILIA. Stool for guaiac pending. Add Retic. Started po iron. 07/03/2020: Reviewed overnight telemetry strips with irregular rhythm however good lenient rate control while resting however breakthrough tachycardia 120s upon ambulation. Less shortness of breath. No longer on oxygen. No JVD, tolerating twice daily metoprolol succinate without decompensation. Patient's blood pressure not optimally controlled however somewhat likely due to situational anxiety as the patient's [id number] just . Nurses concerned about bedbugs, patient does have very dry skin with multiple papules however exam not quite consistent however patient did have extensive shower and a change of room. 07/04/20: Patient with ongoing improvement in cardiovascular status. Pulse well controlled at rest with less breakthrough with exertion. Volume status now neutral. Labs stable. Placement accepted at [facility] on 07/07/20 for which guardian in agreement; patient notified of this and with significant reservation about going. 07/05/20: No overnight calls or concerns. cardiovascular status continues to improve with less breakthrough tachycardia with exertion. weight down 9 pounds from admission. Patient continues to express reservations about planned SNF placement. Hospitalization problems and plan: # Atrial fibrillation, longstanding and likely permanent, with RVR: RVR improving. # Heart failure: Clinical diagnosis this admission. No recent echo. - Continue metoprolol succinate 100mg AM and 50mg PM, digoxin 125mcg, apixaban 2.5mg BID (reduced dosing due to age >80 and wt <60kg) - Plan for outpatient echo - Monitor fluid status with I/O and daily weight # Anemia, iron deficiency - Continue iron and vitamin C MWF, omeprazole 20mg daily - Await occult stool testing (1 negative thus far) # Situational anxiety: Related to recent of [id number]. Grieving appropriately. - Continue alprazolam 0.25mg TID prn for acute anxiety - Monitor closely and consider starting SSRI or mirtazapine if concern for more longstanding mood disturbance # Cognitive impairment: Has appointed guardian due to underlying cognitive impairment, likely at least related to prior CVA and possible prior psychiatric history. [facility] unable to accept patient back. # Deconditioning # ADL deficit - Continue physical therapy - Plan for placement at [facility] on 07/07/20, for which coordination by social work/case management with patient's guardian is greatly appreciated Chronic, stable conditions: # History of CVA: Continue ASA 325mg daily. # Hypertension: Continue metoprolol, as above. # CKD, stage 3b: Stable. # Hyperlipidemia: 11/20/19 lipid panel with LDL 55. Continue atorvastatin 80mg daily. # Hypothyroidism: 06/23/20 TSH 3.44. Continue levothyroxine 75mcg daily. # Hyperparathyroidism: 11/19/19 PTH 281. Today's calcium 8.6. Continue PhosLo. # Hypomagnesemia: 07/01/20 Mg 2.0. Continue magnesium oxide 500mg daily. Hospitalization details: # FEN: No IVF. Electrolytes normal. Heart healthy diet. # PPX: On apixaban, sufficient for DVT ppx. Melatonin for delirium ppx. # Code status: FULL. # Emergency contact: Jason, guardian through [facility]. # Disposition: Continue inpatient status for ongoing improved management of atrial fibrillation rate control. Anticipate discharge to [facility] on 07/07/20.
[2020-07-05] MEDS: Aspirin 325 MG Tab.EC PO SCH (09:01)
[2020-07-05] MEDS: Metoprolol Succinate 50 MG Tab.ER PO SCH ×2 (09:01→20:54)
[2020-07-05] MEDS: Apixaban 5 MG Tab PO SCH ×2 (09:01→20:52)
[2020-07-05] MEDS: Magnesium Oxide 500 MG Tab PO SCH (09:02)
[2020-07-05] MEDS: Digoxin 125 MCG Tab PO SCH (09:02)
[2020-07-05] MEDS: Phosphorus #1 250 MG Tab PO SCH (09:02)
[2020-07-05] MEDS: atorvaSTATin 40 MG Tab PO SCH (20:53)
[2020-07-06] MEDS: Aspirin 325 MG Tab.EC PO SCH (08:03)
[2020-07-06] MEDS: Magnesium Oxide 500 MG Tab PO SCH (08:03)
[2020-07-06] MEDS: Phosphorus #1 250 MG Tab PO SCH (08:03)
[2020-07-06] MEDS: Apixaban 5 MG Tab PO SCH ×2 (08:03→21:02)
[2020-07-06] MEDS: Omeprazole 20 MG Cap.CR PO SCH (08:03)
[2020-07-06] MEDS: Metoprolol Succinate 50 MG Tab.ER PO SCH ×2 (08:04→21:02)
[2020-07-06] MEDS: Levothyroxine 75 MCG Tab PO SCH (08:04)
[2020-07-06] MEDS: Digoxin 125 MCG Tab PO SCH (08:04)
--- NOTE | 2020-07-06 09:44 | PCM.PN ---
- General Info Date of Service: 07/06/20 - Review of Systems General: Reports: No Symptoms HEENT: Reports: No Symptoms Pulmonary: Denies: Shortness of Breath, Cough, Sputum Cardiovascular: Denies: Chest Pain, Palpitations, Dyspnea on Exertion, Orthopnea, PND, Edema, Lightheadedness Gastrointestinal: Reports: No Symptoms Genitourinary: Reports: No Symptoms Musculoskeletal: Reports: No Symptoms Skin: Reports: Dryness Neurological: Reports: No Symptoms Psychiatric: Reports: No Symptoms - Patient Data Vitals - Most Recent: Last Vital Signs Temp 97.4 F 07/06/20 06:24 Pulse 77 07/06/20 08:04 Resp 18 07/06/20 06:24 BP 138/61 07/06/20 08:04 Pulse Ox 98 07/06/20 06:24 Weight - Most Recent: 127 lb 2 oz I&O - Last 24 Hours: Intake & Output 07/05/20 07/06/20 07/06/20 22:59 06:59 14:59 Intake Total 480 100 Balance 480 100 Lab Results Last 24 Hours: Laboratory Results - last 24 hr 07/06/20 07/06/20 Range/Units 07:15 07:15 WBC 8.22 (5.00-10.00) 10^3/uL RBC 5.08 (3.80-5.50) 10^6/uL Hgb 11.0 L (12.0-16.0) g/dL Hct 37.7 (37.0-47.0) % MCV 74.2 L (82.0-92.0) fL MCH 21.7 L (27.0-31.0) pg MCHC 29.2 L (32.0-36.0) g/dL RDW 15.7 H (11.5-14.5) % Plt Count 325 (150-400) 10^3/uL MPV 10.4 (7.4-10.4) fL Immature Gran % (Auto) 0.1 (0.0-5.0) % Neut % (Auto) 68.5 (50.0-70.0) % Lymph % (Auto) 16.3 L (20.0-40.0) % [place] % (Auto) 10.6 H (2.0-8.0) % Eos % (Auto) 4.1 H (1.0-3.0) % Baso % (Auto) 0.4 (0.0-1.0) % Neut # (Auto) 5.63 (2.50-7.00) 10^3/uL Lymph # (Auto) 1.34 (1.00-4.00) 10^3/uL [place] # (Auto) 0.87 H (0.10-0.80) 10^3/uL Eos # (Auto) 0.34 H (0.10-0.30) 10^3/uL Baso # (Auto) 0.03 (0.00-0.10) 10^3/uL Immature Gran # (Auto) 0.01 (0.00-0.50) 10^3/uL Sodium 142 (136-145) mmol/L Potassium 4.6 (3.5-5.1) mmol/L Chloride 107 (98-107) mmol/L Carbon Dioxide 26.6 (21.0-32.0) mmol/L Anion Gap 13.0 (5-15) mmol/L BUN 23 H (7-18) mg/dL Creatinine 1.02 (0.51-1.17) mg/dL Est Cr Clr Drug Dosing 34.82 mL/min Estimated GFR (MDRD) 52 mL/min Glucose 91 (70-140) mg/dL Calcium 9.7 (8.7-10.3) mg/dL Med Orders - Current: Current Medications Acetaminophen (Acetaminophen 325 Mg Tab) 650 mg PO Q4H PRN PRN Reason: Pain Alprazolam (Alprazolam 0.25 Mg Tab) 0.25 mg PO Q8H PRN PRN Reason: Situational anxiety Apixaban (Apixaban 5 Mg Tab) 2.5 mg PO BID [facility] Last Admin: 07/06/20 08:03 Dose: 2.5 mg Documented by: Ascorbic Acid (Ascorbic Acid 500 Mg Tab) 500 mg PO MOWEFR [facility] Last Admin: 07/04/20 09:28 Dose: 500 mg Documented by: Aspirin (Aspirin 325 Mg Tab.Ec) 325 mg PO DAILY [facility] Last Admin: 07/06/20 08:03 Dose: 325 mg Documented by: Atorvastatin Calcium (Atorvastatin 40 Mg Tab) 80 mg PO BEDTIME [facility] Last Admin: 07/05/20 20:53 Dose: 80 mg Documented by: Digoxin (Digoxin 125 Mcg Tab) 125 mcg PO DAILY [facility] Last Admin: 07/06/20 08:04 Dose: 125 mcg Documented by: Ferrous Sulfate (Ferrous Sulfate 325 Mg Tab) 325 mg PO MOWEFR [facility] Last Admin: 07/04/20 09:27 Dose: 325 mg Documented by: Levothyroxine Sodium (Levothyroxine 75 Mcg Tab) 75 mcg PO ACBREAKFAST [facility] Last Admin: 07/06/20 08:04 Dose: 75 mcg Documented by: Magnesium Oxide (Magnesium Oxide 500 Mg Tab) 500 mg PO DAILY [facility] Last Admin: 07/06/20 08:03 Dose: 500 mg Documented by: Metoprolol Succinate (Metoprolol Succinate 50 Mg Tab.Er) 100 mg PO DAILY [facility] Last Admin: 07/06/20 08:04 Dose: 100 mg Documented by: Metoprolol Succinate (Metoprolol Succinate 50 Mg Tab.Er) 50 mg PO BEDTIME [facility] Last Admin: 07/05/20 20:54 Dose: 50 mg Documented by: Omeprazole (Omeprazole 20 Mg Cap.Cr) 20 mg PO ACBREAKFAST [facility] Last Admin: 07/06/20 08:03 Dose: 20 mg Documented by: Sodium Chloride (Sodium Chloride 0.9% 10 Ml Syringe) 10 ml FLUSH Q8HR PRN PRN Reason: keep vein open Sodium Phosphate (Phosphorus #1 250 Mg Tab) 250 mg PO DAILY [facility] Last Admin: 07/06/20 08:03 Dose: 250 mg Documented by: Discontinued Medications Alprazolam (Alprazolam 0.25 Mg Tab) 0.25 mg PO NOW ONE Stop: 07/03/20 10:17 Last Admin: 07/03/20 11:23 Dose: Not Given Documented by: Atropine Sulfate (Atropine 0.1 Mg/Ml 10 Ml Syringe) 0 mg IVPUSH ASDIRECTED PRN PRN Reason: Heart. Digoxin (Digoxin 125 Mcg Tab) 250 mcg PO ONETIME ONE Stop: 06/30/20 18:19 Last Admin: 06/30/20 18:35 Dose: 250 mcg Documented by: Digoxin (Digoxin 500 Mcg/2 Ml Amp) 250 mcg IVPUSH ONETIME ONE Stop: 07/01/20 05:46 Last Admin: 07/01/20 06:03 Dose: 250 mcg Documented by: Diltiazem HCl (Diltiazem 25 Mg/5 Ml Sdv) 15 mg 0.25 mg/kg (15 mg) IVPUSH NOW ONE Stop: 06/30/20 13:13 Last Admin: 06/30/20 13:22 Dose: 15 mg Documented by: Diltiazem HCl (Diltiazem 25 Mg/5 Ml Sdv) 15 mg IVPUSH ONETIME ONE Stop: 07/01/20 05:20 Last Admin: 07/01/20 05:38 Dose: 15 mg Documented by: Epinephrine HCl (Epinephrine 1:10,000 1 Mg/10 Ml Syringe) 1 mg IVPUSH ASDIRECTED PRN PRN Reason: Heart. Ferrous Sulfate (Ferrous Sulfate 325 Mg Tab) 325 mg PO DAILY [facility] Last Admin: 07/03/20 08:40 Dose: 325 mg Documented by: Furosemide (Furosemide 40 Mg/4 Ml Vial) 20 mg IVPUSH NOW ONE Stop: 07/01/20 05:19 Last Admin: 07/01/20 05:33 Dose: 20 mg Documented by: Furosemide (Furosemide 40 Mg/4 Ml Vial) 20 mg IVPUSH NOW ONE Stop: 07/01/20 14:01 Last Admin: 07/01/20 13:29 Dose: 20 mg Documented by: Sodium Chloride (Normal Saline) 1,000 mls @ 125 mls/hr IV .BOLUS ONE Stop: 06/30/20 21:18 Last Admin: 06/30/20 13:22 Dose: 125 mls/hr Documented by: Sodium Chloride (Normal Saline) Confirm Administered Dose 1,000 mls @ as directed .ROUTE .STK-MED ONE Stop: 06/30/20 13:21 Last Admin: 06/30/20 13:23 Dose: Not Given Documented by: Lidocaine HCl (Lidocaine 2% 100 Mg/5 Ml Syringe) 0 mg IVPUSH ASDIRECTED PRN PRN Reason: Heart. Metoprolol Succinate (Metoprolol Succinate 25 Mg Tab.Er) 25 mg PO ONETIME ONE Stop: 06/30/20 14:38 Last Admin: 06/30/20 14:55 Dose: 25 mg Documented by: Metoprolol Succinate (Metoprolol Succinate 50 Mg Tab.Er) 50 mg PO DAILY [facility] Last Admin: 07/01/20 08:57 Dose: 50 mg Documented by: Metoprolol Succinate (Metoprolol Succinate 25 Mg Tab.Er) 25 mg PO ONETIME ONE Stop: 06/30/20 17:56 Last Admin: 06/30/20 18:35 Dose: 25 mg Documented by: Metoprolol Succinate (Metoprolol Succinate 25 Mg Tab.Er) 12.5 mg PO ONETIME ONE Stop: 07/01/20 00:17 Last Admin: 07/01/20 00:24 Dose: 12.5 mg Documented by: Metoprolol Succinate (Metoprolol Succinate 25 Mg Tab.Er) Confirm Administered Dose 25 mg .ROUTE .STK-MED ONE Stop: 07/01/20 00:24 Last Admin: 07/01/20 01:21 Dose: Not Given Documented by: Metoprolol Succinate (Metoprolol Succinate 25 Mg Tab.Er) 25 mg PO ONETIME ONE Stop: 07/01/20 05:51 Last Admin: 07/01/20 06:01 Dose: 25 mg Documented by: Metoprolol Succinate (Metoprolol Succinate 50 Mg Tab.Er) 50 mg PO ONETIME ONE Stop: 07/01/20 10:41 Last Admin: 07/01/20 11:14 Dose: 50 mg Documented by: Metoprolol Succinate (Metoprolol Succinate 50 Mg Tab.Er) 50 mg PO ONETIME ONE Stop: 07/01/20 21:01 Last Admin: 07/01/20 21:15 Dose: 50 mg Documented by: Metoprolol Tartrate (Metoprolol Tartrate 25 Mg Tab) 12.5 mg PO ONETIME ONE Stop: 06/30/20 21:27 Last Admin: 06/30/20 21:50 Dose: 12.5 mg Documented by: Nitroglycerin (Nitroglycerin 0.4 Mg Tab.Sl) 0.4 mg SL ASDIRECTED PRN PRN Reason: Heart. Cinacalcet [Sensipar (] 60 Mg Tablet) 60 mg PO BID [facility] Last Admin: 06/30/20 23:29 Dose: Not Given Documented by: - Exam Quality Assessment: DVT Prophylaxis General: Alert, Oriented HEENT: Mucous Membr. Moist/[place] Neck: Supple, No JVD Lungs: Clear to Auscultation, Normal Respiratory Effort Cardiovascular: Regular Rate (HR 88), Irregular Rhythm GI/Abdominal Exam: Normal Bowel Sounds, Soft, Non-Tender Extremities: No Pedal Edema Skin: Warm, Dry, Other (scattered excoriations primarily to the arms and legs, dry skin) Neurological: No New Focal Deficit Psy/Mental Status: Alert - Patient Data Lab Results Last 24 hrs: Laboratory Results - last 24 hr 07/06/20 07/06/20 Range/Units 07:15 07:15 WBC 8.22 (5.00-10.00) 10^3/uL RBC 5.08 (3.80-5.50) 10^6/uL Hgb 11.0 L (12.0-16.0) g/dL Hct 37.7 (37.0-47.0) % MCV 74.2 L (82.0-92.0) fL MCH 21.7 L (27.0-31.0) pg MCHC 29.2 L (32.0-36.0) g/dL RDW 15.7 H (11.5-14.5) % Plt Count 325 (150-400) 10^3/uL MPV 10.4 (7.4-10.4) fL Immature Gran % (Auto) 0.1 (0.0-5.0) % Neut % (Auto) 68.5 (50.0-70.0) % Lymph % (Auto) 16.3 L (20.0-40.0) % [place] % (Auto) 10.6 H (2.0-8.0) % Eos % (Auto) 4.1 H (1.0-3.0) % Baso % (Auto) 0.4 (0.0-1.0) % Neut # (Auto) 5.63 (2.50-7.00) 10^3/uL Lymph # (Auto) 1.34 (1.00-4.00) 10^3/uL [place] # (Auto) 0.87 H (0.10-0.80) 10^3/uL Eos # (Auto) 0.34 H (0.10-0.30) 10^3/uL Baso # (Auto) 0.03 (0.00-0.10) 10^3/uL Immature Gran # (Auto) 0.01 (0.00-0.50) 10^3/uL Sodium 142 (136-145) mmol/L Potassium 4.6 (3.5-5.1) mmol/L Chloride 107 (98-107) mmol/L Carbon Dioxide 26.6 (21.0-32.0) mmol/L Anion Gap 13.0 (5-15) mmol/L BUN 23 H (7-18) mg/dL Creatinine 1.02 (0.51-1.17) mg/dL Est Cr Clr Drug Dosing 34.82 mL/min Estimated GFR (MDRD) 52 mL/min Glucose 91 (70-140) mg/dL Calcium 9.7 (8.7-10.3) mg/dL Result Diagrams: 07/06/20 07:15 07/06/20 07:15 Sepsis Event Note - Evaluation Sepsis Screening Result: No Definite Risk - Focused Exam Vital Signs: Vital Signs Temp Pulse Pulse Resp BP BP Pulse Ox 07/06/20 08:04 77 138/61 07/06/20 06:24 97.4 F 71 18 145/78 H 98 07/05/20 22:32 98.0 F 83 18 143/57 H 97 - Problem List Review Problem List Initiated/Reviewed/Updated: Yes - Plan Plan:: HPI summary: Ms. Horton a an 84yoF with a history notable for atrial fibrillation who was seen by TREASURE Montalvo, at [facility] on the date of admission for shortness of breath and tachycardia. [place], guardian was contacted and she was transferred to the [facility] ED for further evaluation. She reported about a week of progressive symptoms. She had been seen a week prior on 06/23/20 by TREASURE Walter, for tachycardia at which time she was started on metoprolol succinate 50mg daily. Notable ED course: Pulse 130s BNP 880 Trop negative CXR with small bilateral pleural effusions EKG with atrial fibrillation, heart rate 120s, no other notable abnormalities Diltiazem 15mg given with good response Metoprolol succinate 25 mg given x1 Admitted to observation status for further management of atrial fibrillation with RVR Hospital course: 06/30/2020: @2130, money counter provider ordered one-time dose of metoprolol tartrate 12.5mg for HR greater than 100 and if at midnight the HR continues above 100, to give 12.5mg metoprolol succinate. 07/01/2020: @ 0500, patient noted to on side of bed by nursing with SOB, but denied chest pain. VS: T 97.1, HR 125, RR 34, SpO2 96% on 2L, BP 152/104. @0515, Dr. Cloud, notified of patient status as well as gradual increase in HR of 120s with brief 130s and furosemide 20mg IV and diltiazem 15mg IV given. @0530, Dr. Cloud called back and also ordered digoxin 0.25mg IV and metoprolol succinate 25mg PO. @0630, pt reported that she was breathing better and vital signs have improved. 07/02/2020: Patient with improved rate control with metoprolol, digoxin. Has yet to ambulate, resting HR 90-100. No edema, now off oxygen, lungs clear. Reviewed hematological indices, widened RDW, low to normal ferritin with low circulating iron and low percentage transferrin all point to [place]. Stool for guaiac pending. Add Retic. Started po iron. 07/03/2020: Reviewed overnight telemetry strips with irregular rhythm however good lenient rate control while resting however breakthrough tachycardia 120s upon ambulation. Less shortness of breath. No longer on oxygen. No JVD, tolerating twice daily metoprolol succinate without decompensation. Patient's blood pressure not optimally controlled however somewhat likely due to situational anxiety as the patient's [id number] just . Nurses concerned about bedbugs, patient does have very dry skin with multiple papules however exam not quite consistent however patient did have extensive shower and a change of room. 07/04/20: Patient with ongoing improvement in cardiovascular status. Pulse well controlled at rest with less breakthrough with exertion. Volume status now neutral. Labs stable. Placement accepted at [facility] on 07/07/20 for which guardian in agreement; patient notified of this and with significant reservation about going. 07/05/20: No overnight calls or concerns. cardiovascular status continues to improve with less breakthrough tachycardia with exertion. weight down 9 pounds from admission. Patient continues to express reservations about planned SNF placement. 07/06/20: no overnight calls or concerns. cardiovascular status remains stable. Rate with improved control. Patient continues to express reservations about post discharge SNF placement. Hospitalization problems and plan: # Atrial fibrillation, longstanding and likely permanent, with RVR: RVR improved # Heart failure: Clinical diagnosis this admission. No recent echo. - Continue metoprolol succinate 100mg AM and 50mg PM, digoxin 125mcg, apixaban 2.5mg BID (reduced dosing due to age >80 and wt <60kg) - Plan for outpatient echo - Monitor fluid status with I/O and daily weight # Anemia, iron deficiency - Continue iron and vitamin C MWF, omeprazole 20mg daily - Await occult stool testing (2 negative thus far) # Situational anxiety: Related to recent of [id number]. Grieving appropriately. - Continue alprazolam 0.25mg TID prn for acute anxiety - Monitor closely and consider starting SSRI or mirtazapine if concern for more longstanding mood disturbance # Cognitive impairment: Has appointed guardian due to underlying cognitive impairment, likely at least related to prior CVA and possible prior psychiatric history. [facility] unable to accept patient back. # Deconditioning # ADL deficit - Continue physical therapy - Plan for placement at [facility] on 07/07/20, for which coordination by social work/case management with patient's guardian is greatly appreciated Chronic, stable conditions: # History of CVA: Continue ASA 325mg daily. # Hypertension: Continue metoprolol, as above. # CKD, stage 3b: Stable. # Hyperlipidemia: 11/20/19 lipid panel with LDL 55. Continue atorvastatin 80mg daily. # Hypothyroidism: 06/23/20 TSH 3.44. Continue levothyroxine 75mcg daily. # Hyperparathyroidism: 11/19/19 PTH 281. Today's calcium 8.6. Continue PhosLo. # Hypomagnesemia: 07/01/20 Mg 2.0. Continue magnesium oxide 500mg daily. Hospitalization details: # FEN: No IVF. Electrolytes normal. Heart healthy diet. # PPX: On apixaban, sufficient for DVT ppx. Melatonin for delirium ppx. # Code status: FULL. # Emergency contact: ramo Gomez through [facility]. # Disposition: Continue inpatient status for ongoing improved management of atrial fibrillation rate control. Anticipate discharge to [facility] on 07/07/20.
[2020-07-06] MEDS: atorvaSTATin 40 MG Tab PO SCH (21:02)
[2020-07-07] MEDS: Omeprazole 20 MG Cap.CR PO SCH (07:30)
[2020-07-07] MEDS: Levothyroxine 75 MCG Tab PO SCH (07:30)
[2020-07-07] MEDS: Aspirin 325 MG Tab.EC PO SCH (08:11)
[2020-07-07] MEDS: Magnesium Oxide 500 MG Tab PO SCH (08:12)
[2020-07-07] MEDS: Phosphorus #1 250 MG Tab PO SCH (08:12)
[2020-07-07] MEDS: Apixaban 5 MG Tab PO SCH (08:13)
[2020-07-07] MEDS: Metoprolol Succinate 50 MG Tab.ER PO SCH (08:14)
[2020-07-07] MEDS: Digoxin 125 MCG Tab PO SCH (08:15)
[2020-07-07] MEDS: Ferrous Sulfate 325 MG Tab PO SCH (10:38)
[2020-07-07] MEDS: Ascorbic Acid 500 MG Tab PO SCH (10:38)
--- NOTE | 2020-07-07 10:53 | PCM.DCSUM1 ---
Discharge Summary - Hospital Course Diagnosis: Stroke: No - Discharge Data Discharge Date: 07/07/20 Discharge Disposition: DC/Tfer to SNF 03 Condition: Good - Referral to Home Health Primary Care Physician: Frederick Duggan NP - Patient Summary/Data Consults: Consultations 07/02/20 17:00 Consult to Physical Therapy [PT Evaluation and Treatment] [CONS] Routine - Patient Instructions Diet: Heart Healthy Diet Activity: As Tolerated Showering/Bathing: May Shower Other/Special Instructions: Report chest papitations, dizzines or HR >100 on exertion - Discharge Plan *PRESCRIPTION DRUG MONITORING PROGRAM REVIEWED*: Not Applicable *COPY OF PRESCRIPTION DRUG MONITORING REPORT IN PATIENT RAMYA: Not Applicable Prescriptions/Med Rec: Aspirin [Aspirin EC] 162 mg PO DAILY #60 tablet. Apixaban [Eliquis] 2.5 mg PO BID #60 Ferrous Sulfate 325 mg PO MOWEFR #12 tablet Levothyroxine 75 mcg PO ACBREAKFAST #30 tablet atorvaSTATin [Lipitor] 80 mg PO BEDTIME #30 Magnesium Oxide 500 mg PO DAILY #30 Metoprolol Succinate 50 mg PO BEDTIME #30 tab.er.24h Omeprazole 20 mg PO ACBREAKFAST #30 cap.cr Acetaminophen [Pain Relief] 650 mg PO Q4H PRN #60 PRN Reason: Pain Phosphorus #1 [Phospha 250 Neutral Tablet] 250 mg PO DAILY #30 Cinacalcet [Sensipar] 60 mg PO BID #60 Metoprolol Succinate [Toprol XL 100mg] 100 mg PO DAILY #30 tab.er Ascorbate Calcium [Vitamin C] 500 mg PO MOWEFR #12 tablet Home Medications: Home Meds Metoprolol Succinate [Toprol XL 50mg] 50 mg PO DAILY 06/30/20 [History] Acetaminophen [Pain Relief] 650 mg PO Q4H PRN #60 07/07/20 [Rx] Apixaban [Eliquis] 2.5 mg PO BID #60 07/07/20 [Rx] Ascorbate Calcium [Vitamin C] 500 mg PO MOWEFR #12 tablet 07/07/20 [Rx] Aspirin [Aspirin EC] 162 mg PO DAILY #60 tablet. 07/07/20 [Rx] Cinacalcet [Sensipar] 60 mg PO BID #60 07/07/20 [Rx] Ferrous Sulfate 325 mg PO MOWEFR #12 tablet 07/07/20 [Rx] Levothyroxine 75 mcg PO ACBREAKFAST #30 tablet 07/07/20 [Rx] Magnesium Oxide 500 mg PO DAILY #30 07/07/20 [Rx] Metoprolol Succinate 50 mg PO BEDTIME #30 tab.er.24h 07/07/20 [Rx] Metoprolol Succinate [Toprol XL 100mg] 100 mg PO DAILY #30 tab.er 07/07/20 [Rx] Omeprazole 20 mg PO ACBREAKFAST #30 cap.cr 07/07/20 [Rx] Phosphorus #1 [Phospha 250 Neutral Tablet] 250 mg PO DAILY #30 07/07/20 [Rx] atorvaSTATin [Lipitor] 80 mg PO BEDTIME #30 07/07/20 [Rx] Oxygen Therapy Mode: Room Air Referrals: Frederick Duggan HATCHERY LABORER [Primary Care Provider] - 07/11/20 9:00 am ([facility]) - Discharge Summary/Plan Comment DC Time >30 min.: Yes Discharge Summary/Plan Comment: Final diagnosis --Atrial fibrillation, longstanding and likely permanent, with RVR: RVR improved --Heart failure: Clinical diagnosis this admission. No recent echo. --Anemia, iron deficiency --Situational anxiety: Related to recent of [id number]. Grieving appropriately. --Cognitive impairment --Deconditioning Chronic, stable conditions # History of CVA: Reduce ASA upon DC. # Hypertension: Continue metoprolol, as above. # CKD, stage 3b: Stable. # Hyperlipidemia: 11/20/19 lipid panel with LDL 55. Continue atorvastatin 80mg daily. # Hypothyroidism: 06/23/20 TSH 3.44. Continue levothyroxine 75mcg daily. # Hyperparathyroidism: 11/19/19 PTH 281. Continue PhosLo. # Hypomagnesemia: 07/01/20 Mg 2.0. Continue magnesium oxide 500mg daily. HPI summary Ms. Horton a an 84yoF with a history notable for atrial fibrillation who was seen by Cindy Doherty APRN-JOSHUA, at [facility] on the date of admission for shortness of breath and tachycardia. Due [place], guardian was contacted and she was transferred to the [facility] ED for further evaluation. She reported about a week of progressive symptoms. She had been seen a week prior on 06/23/20 by Frederick Duggan APRN-JOSHUA, for tachycardia at which time she was started on metoprolol succinate 50mg daily. Notable ED course: Pulse 130s BNP 880 Trop negative CXR with small bilateral pleural effusions EKG with atrial fibrillation, heart rate 120s, no other notable abnormalities Diltiazem 15mg given with good response Metoprolol succinate 25 mg given x1 Admitted to observation status for further management of atrial fibrillation with RVR Hospital course: 06/30/2020: @2130, operations and maintenance technican provider ordered one-time dose of metoprolol tartrate 12.5mg for HR greater than 100 and if at midnight the HR continues above 100, to give 12.5mg metoprolol succinate. 07/01/2020: @ 0500, patient noted to on side of bed by nursing with SOB, but denied chest pain. VS: T 97.1, HR 125, RR 34, SpO2 96% on 2L, BP 152/104. @0515, Dr. Cloud, notified of patient status as well as gradual increase in HR of 120s with brief 130s and furosemide 20mg IV and diltiazem 15mg IV given. @0530, Dr. Cloud called back and also ordered digoxin 0.25mg IV and metoprolol succinate 25mg PO. @0630, pt reported that she was breathing better and vital signs have improved. 07/02/2020: Patient with improved rate control with metoprolol, digoxin. Has yet to ambulate, resting HR 90-100. No edema, now off oxygen, lungs clear. Reviewed hematological indices, widened RDW, low to normal ferritin with low circulating iron and low percentage transferrin all point to ANALILIA. Stool for guaiac pending. Add Retic. Started po iron. 07/03/2020: Reviewed overnight telemetry strips with irregular rhythm however good lenient rate control while resting however breakthrough tachycardia 120s upon ambulation. Less shortness of breath. No longer on oxygen. No JVD, tolerating twice daily metoprolol succinate without decompensation. Patient's blood pressure not optimally controlled however somewhat likely due to situational anxiety as the patient's [id number] just . Nurses concerned about bedbugs, patient does have very dry skin with multiple papules however exam not quite consistent however patient did have extensive shower and a change of room. 07/04/20: Patient with ongoing improvement in cardiovascular status. Pulse well controlled at rest with less breakthrough with exertion. Volume status now neutral. Labs stable. Placement accepted at [facility] on 07/07/20 for which guardian in agreement; patient notified of this and with significant reservation about going. 07/05/20: No overnight calls or concerns. cardiovascular status continues to improve with less breakthrough tachycardia with exertion. weight down 9 pounds from admission. Patient continues to express reservations about planned SNF placement. 07/06/20: no overnight calls or concerns. cardiovascular status remains stable. Rate with improved control. Patient continues to express reservations about post discharge SNF placement. 07/07/2020; no overnight calls nor concerns by nurses, no breakthrough tachycardia, tolerating long-acting twice daily succinate, Medications changes/adjustments upon discharge Apixaban, 2.5 mg p.o. twice daily (newly added during hospital admission) Ferrous sulfate, 325 mg p.o. Tuesday, (newly added during hospital admission) Vitamin C, 500 mg p.o. Tuesday, Tuesday with iron (newly added during hospital admission) Omeprazole, 20 mg p.o. daily, (newly added during hospital admission) Metoprolol succinate, 100 mg a.m., 50 mg p.m., (newly added during hospital admission) Digoxin, 0.125 mg p.o. daily (newly added during hospital admission) # Code status: FULL. # Emergency contact: subhash Gomezan through [facility]. Disposition: Patient will be discharged from [facility] and admitted into [facility]. Follow-up appointment with myself Tuesday [facility] - General Info Functional Status: Reports: Pain Controlled - Review of Systems General: Reports: No Symptoms HEENT: Reports: No Symptoms Pulmonary: Reports: No Symptoms Cardiovascular: Reports: No Symptoms Gastrointestinal: Reports: No Symptoms Musculoskeletal: Reports: No Symptoms - Patient Data Vitals - Most Recent: Last Vital Signs Temp 97.8 F 07/07/20 06:10 Pulse 80 07/07/20 08:15 Resp 18 07/07/20 06:10 BP 139/67 07/07/20 08:14 Pulse Ox 94 L 07/07/20 06:10 Weight - Most Recent: 127 lb 2 oz I&O - Last 24 hours: Intake & Output 04/11/21 04/12/21 04/12/21 22:59 06:59 14:59 Intake Total 350 75 Balance 350 75 Med Orders - Current: Current Medications Acetaminophen (Acetaminophen 325 Mg Tab) 650 mg PO Q4H PRN PRN Reason: Pain Alprazolam (Alprazolam 0.25 Mg Tab) 0.25 mg PO Q8H PRN PRN Reason: Situational anxiety Apixaban (Apixaban 5 Mg Tab) 2.5 mg PO BID [facility] Last Admin: 07/07/20 08:13 Dose: 2.5 mg Documented by: Ascorbic Acid (Ascorbic Acid 500 Mg Tab) 500 mg PO MOWEFR [facility] Last Admin: 07/04/20 09:28 Dose: 500 mg Documented by: Aspirin (Aspirin 325 Mg Tab.Ec) 325 mg PO DAILY [facility] Last Admin: 07/07/20 08:11 Dose: 325 mg Documented by: Atorvastatin Calcium (Atorvastatin 40 Mg Tab) 80 mg PO BEDTIME [facility] Last Admin: 07/06/20 21:02 Dose: 80 mg Documented by: Digoxin (Digoxin 125 Mcg Tab) 125 mcg PO DAILY [facility] Last Admin: 07/07/20 08:15 Dose: 125 mcg Documented by: Ferrous Sulfate (Ferrous Sulfate 325 Mg Tab) 325 mg PO MOWEFR [facility] Last Admin: 07/04/20 09:27 Dose: 325 mg Documented by: Levothyroxine Sodium (Levothyroxine 75 Mcg Tab) 75 mcg PO ACBREAKFAST [facility] Last Admin: 07/07/20 07:30 Dose: 75 mcg Documented by: Magnesium Oxide (Magnesium Oxide 500 Mg Tab) 500 mg PO DAILY [facility] Last Admin: 07/07/20 08:12 Dose: 500 mg Documented by: Metoprolol Succinate (Metoprolol Succinate 50 Mg Tab.Er) 100 mg PO DAILY [facility] Last Admin: 07/07/20 08:14 Dose: 100 mg Documented by: Metoprolol Succinate (Metoprolol Succinate 50 Mg Tab.Er) 50 mg PO BEDTIME [facility] Last Admin: 07/06/20 21:02 Dose: 50 mg Documented by: Omeprazole (Omeprazole 20 Mg Cap.Cr) 20 mg PO ACBREAKFAST [facility] Last Admin: 07/07/20 07:30 Dose: 20 mg Documented by: Sodium Chloride (Sodium Chloride 0.9% 10 Ml Syringe) 10 ml FLUSH Q8HR PRN PRN Reason: keep vein open Sodium Phosphate (Phosphorus #1 250 Mg Tab) 250 mg PO DAILY [facility] Last Admin: 07/07/20 08:12 Dose: 250 mg Documented by: Discontinued Medications Alprazolam (Alprazolam 0.25 Mg Tab) 0.25 mg PO NOW ONE Stop: 07/03/20 10:17 Last Admin: 07/03/20 11:23 Dose: Not Given Documented by: Atropine Sulfate (Atropine 0.1 Mg/Ml 10 Ml Syringe) 0 mg IVPUSH ASDIRECTED PRN PRN Reason: Heart. Digoxin (Digoxin 125 Mcg Tab) 250 mcg PO ONETIME ONE Stop: 06/30/20 18:19 Last Admin: 06/30/20 18:35 Dose: 250 mcg Documented by: Digoxin (Digoxin 500 Mcg/2 Ml Amp) 250 mcg IVPUSH ONETIME ONE Stop: 07/01/20 05:46 Last Admin: 07/01/20 06:03 Dose: 250 mcg Documented by: Diltiazem HCl (Diltiazem 25 Mg/5 Ml Sdv) 15 mg 0.25 mg/kg (15 mg) IVPUSH NOW ONE Stop: 06/30/20 13:13 Last Admin: 06/30/20 13:22 Dose: 15 mg Documented by: Diltiazem HCl (Diltiazem 25 Mg/5 Ml Sdv) 15 mg IVPUSH ONETIME ONE Stop: 07/01/20 05:20 Last Admin: 07/01/20 05:38 Dose: 15 mg Documented by: Epinephrine HCl (Epinephrine 1:10,000 1 Mg/10 Ml Syringe) 1 mg IVPUSH ASDIRECTED PRN PRN Reason: Heart. Ferrous Sulfate (Ferrous Sulfate 325 Mg Tab) 325 mg PO DAILY [facility] Last Admin: 07/03/20 08:40 Dose: 325 mg Documented by: Furosemide (Furosemide 40 Mg/4 Ml Vial) 20 mg IVPUSH NOW ONE Stop: 07/01/20 05:19 Last Admin: 07/01/20 05:33 Dose: 20 mg Documented by: Furosemide (Furosemide 40 Mg/4 Ml Vial) 20 mg IVPUSH NOW ONE Stop: 07/01/20 14:01 Last Admin: 07/01/20 13:29 Dose: 20 mg Documented by: Sodium Chloride (Normal Saline) 1,000 mls @ 125 mls/hr IV .BOLUS ONE Stop: 06/30/20 21:18 Last Admin: 06/30/20 13:22 Dose: 125 mls/hr Documented by: Sodium Chloride (Normal Saline) Confirm Administered Dose 1,000 mls @ as directed .ROUTE .STK-MED ONE Stop: 06/30/20 13:21 Last Admin: 06/30/20 13:23 Dose: Not Given Documented by: Lidocaine HCl (Lidocaine 2% 100 Mg/5 Ml Syringe) 0 mg IVPUSH ASDIRECTED PRN PRN Reason: Heart. Metoprolol Succinate (Metoprolol Succinate 25 Mg Tab.Er) 25 mg PO ONETIME ONE Stop: 06/30/20 14:38 Last Admin: 06/30/20 14:55 Dose: 25 mg Documented by: Metoprolol Succinate (Metoprolol Succinate 50 Mg Tab.Er) 50 mg PO DAILY [facility] Last Admin: 07/01/20 08:57 Dose: 50 mg Documented by: Metoprolol Succinate (Metoprolol Succinate 25 Mg Tab.Er) 25 mg PO ONETIME ONE Stop: 06/30/20 17:56 Last Admin: 06/30/20 18:35 Dose: 25 mg Documented by: Metoprolol Succinate (Metoprolol Succinate 25 Mg Tab.Er) 12.5 mg PO ONETIME ONE Stop: 07/01/20 00:17 Last Admin: 07/01/20 00:24 Dose: 12.5 mg Documented by: Metoprolol Succinate (Metoprolol Succinate 25 Mg Tab.Er) Confirm Administered Dose 25 mg .ROUTE .STK-MED ONE Stop: 07/01/20 00:24 Last Admin: 07/01/20 01:21 Dose: Not Given Documented by: Metoprolol Succinate (Metoprolol Succinate 25 Mg Tab.Er) 25 mg PO ONETIME ONE Stop: 07/01/20 05:51 Last Admin: 07/01/20 06:01 Dose: 25 mg Documented by: Metoprolol Succinate (Metoprolol Succinate 50 Mg Tab.Er) 50 mg PO ONETIME ONE Stop: 07/01/20 10:41 Last Admin: 07/01/20 11:14 Dose: 50 mg Documented by: Metoprolol Succinate (Metoprolol Succinate 50 Mg Tab.Er) 50 mg PO ONETIME ONE Stop: 07/01/20 21:01 Last Admin: 04/06/21 21:15 Dose: 50 mg Documented by: Metoprolol Tartrate (Metoprolol Tartrate 25 Mg Tab) 12.5 mg PO ONETIME ONE Stop: 06/30/20 21:27 Last Admin: 06/30/20 21:50 Dose: 12.5 mg Documented by: Nitroglycerin (Nitroglycerin 0.4 Mg Tab.Sl) 0.4 mg SL ASDIRECTED PRN PRN Reason: Heart. Cinacalcet [Sensipar (] 60 Mg Tablet) 60 mg PO BID [facility] Last Admin: 06/30/20 23:29 Dose: Not Given Documented by: - Exam Quality Assessment: Denies: Supplemental Oxygen General: Reports: Alert, Oriented, Cooperative Lungs: Reports: Clear to Auscultation, Normal Respiratory Effort Cardiovascular: Reports: Irregular Rhythm. Denies: Tachycardia
== END 2020-07-07 11:48 | DRG 309 ==
LOC: KA.ED 12:45 → KA.MS 14:40 → INTOOBSV 07-02 17:00 → OBSVTOIN 07-02 17:00 → KA.MS 07-03 09:30 → UNDODISIN 07-07 11:48
PROVIDERS: ADMIT Family Medicine; ATTEND Family Medicine
DX: R53.1 Weakness (principal); I48.21 Permanent atrial fibrillation; I50.9 Heart failure, unspecified; I13.0 Hypertensive heart and chronic kidney disease with heart failure and stage 1 through stage 4 chronic kidney disease, or unspecified chronic kidney disease; I50.20 Unspecified systolic (congestive) heart failure; I48.92 Unspecified atrial flutter; D50.9 Iron deficiency anemia, unspecified; F41.9 Anxiety disorder, unspecified; G31.84 Mild cognitive impairment of uncertain or unknown etiology; N18.32 Chronic kidney disease, stage 3b; I10 Essential (primary) hypertension; M81.0 Age-related osteoporosis without current pathological fracture; Z20.822 Contact with and (suspected) exposure to COVID-19; E78.5 Hyperlipidemia, unspecified; E03.9 Hypothyroidism, unspecified; E21.3 Hyperparathyroidism, unspecified; E83.42 Hypomagnesemia; Z79.01 Long term (current) use of anticoagulants; Z79.82 Long term (current) use of aspirin; Z79.899 Other long term (current) drug therapy; Z79.890 Hormone replacement therapy; Z86.73 Personal history of transient ischemic attack (TIA), and cerebral infarction without residual deficits
CPT/HCPCS: 36415; 80048; 80053; 82272; 82728; 83540; 83550; 83735; 83880; 84100; 84466; 84484; 85025; 85046; 93005; 96374; 96375; 96376; 97161-GP; 99284; 99285-25; A9270-GY; G0378; J1160; J1940; J3490; J7030; U0002